=== PATIENT | male | born 2000 | race African-American/Black ===

== ENCOUNTER 2019-01-26 17:34 | Emergency (ER) | payer OTHER ==
--- OUTSIDE RECORDS SUMMARY | 2019-01-26 17:38 | XMS REPORT | Continuity of Care Document ---
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 SEIZURE Active 07/25/19 [facility] 18 Epilepsy, 06/29/19 09/27/2017 [facility] unspecified, not 18 intractable, without status epilepticus Unspecified 06/21/19 09/27/2017 [facility] convulsions 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, not intractable, without status epilepticus AMS Active 06/10/19 [facility] 18 HAND IN JURY Active 06/30/19 [facility] 12 Laceration 10/30/2017 [facility] without foreign body of right forearm, initial encounter Intentional 10/30/2017 [facility] self-harm by unspecified sharp object, initial encounter Rhabdomyolysis 09/19/2017 [facility] XRAY Active [facility] UNSPECIFIED Active [facility] CONVULSIONS Medications Medication Details Route Status Patient Ordering Order Source Instructions Provider Date Ativan 1 mg, 0.5 Inactive mL, Route: 018 [facility] IVP, Drug form: INJ, ONCE, Dosing Weight 76.364, kg, Priority: STAT, Start date: 07/24/17 13:35:00 CDT, Stop date: 07/24/17 13:35:00 CDTNotes: (Same as: Ativan) Geodon 10 mg, Inactive Route: IM, 018 [facility] Drug form: PDR/INJ, ONCE, Dosing Weight 76.364, kg, Priority: STAT, Start date: 07/24/17 10:25:00 CDT, Stop date: 07/24/17 10:25:00 CDT Zyprexa 10 mg, Inactive Route: IM, 018 [facility] Drug form: INJ, ONCE, Dosing Weight 76.364, kg, Priority: STAT, Start date: 07/24/17 9:09:00 CDT, Stop date: 07/24/17 9:09:00 CDT Morphine 2 mg, Route: Inactive IVP, ONCE, [facility] Dosing Weight 76.364, kg, Priority: STAT, Start date: 07/24/17 7:22:00 CDT, Stop date: 07/24/17 7:22:00 CDT Sodium Chloride 1,000 mL, Inactive 0.9% (Bolus) IV 1,000 ml/hr, [facility] Infuse Over: 1 hr, Route: IV, 1,000, Drug form: INJ, ONCE, Priority: STAT, Dosing Weight 79.545 kg, Start date: 07/24/17 5:49:00 CDT, Stop date: 07/24/17 5:49:00 CDT Saline Flush 10 mL, Inactive 0.9% Route: IVP, [address] [place] [address] Drug Form: INJ, Dosing Weight 79.545, kg, PRN, PRN Line Flush, Start date: 07/24/17 5:49:00 CDT, Duration: 30 day, Stop date: 08/23/17 5:48:00 CDTNotes: (Same as: BD Posiflush) Levetiracetam 1,000 mg=1 Active 1000 MG Oral tab, PO, 018 [facility] Tablet [Keppra] BID, # 60 tab, 0 Refill(s) Levetiracetam 750 mg=1 No Longer MH 750 MG Oral tab, PO, Active 018 [facility] Tablet [Keppra] Q12H, # 60 tab, 0 Refill(s), Pharmacy: [facility] [id number] Levetiracetam 750 mg, 3 Inactive tab, Route: 018 [facility] PO, Drug form: TAB, Q12H, Dosing Weight 77.273, kg, Start date: 06/12/17 21:00:00 RISK MODELER, Duration: 30 day, Stop date: 07/12/17 9:00:00 CSTNotes: (Same as:Keppra) Levetiracetam 750 mg, 3 No Longer MH 750 MG Oral tab, Route: Active 018 [facility] Tablet [Keppra] PO, Drug form: TAB, Q12H, Dosing Weight 75, kg, Start date: 06/12/17 21:00:00 RISK MODELER, Duration: 30 day, Stop date: 07/12/17 9:00:00 CSTNotes: (Same as:Keppra) Levetiracetam 500 mg, 1 No Longer MH tab, Route: Active 018 [facility] PO, Drug form: TAB, Q12H, Dosing Weight 77.273, kg, Start date: 06/11/17 9:00:00 RISK MODELER, Duration: 30 day, Stop date: 07/10/17 21:00:00 CSTNotes: (Same as:Keppra) Tylenol 650 mg, 2 No Longer MH tab, Route: Active 018 [facility] PO, Drug form: TAB, Q6H, Dosing Weight 75, kg, PRN Pain Score 6-10, Start date: 06/11/17 8:09:00 RISK MODELER, Duration: 30 day, Stop date: 07/11/17 8:08:00 CSTNotes: Do not exceed 4 gm/day. (Same as: Tylenol) Saline Flush 10 ml, No Longer MH 0.9% Route: IVP, Active 018 [facility] Drug Form: INJ, Dosing Weight 77.273, kg, PRN, PRN Line Flush, Start date: 06/10/17 23:00:00 RISK MODELER, Duration: 30 day, Stop date: 07/10/17 22:59:00 CSTNotes: (Same as: BD Posiflush) Sodium Chloride 1,000 mL, No Longer MH 0.9% IV 1,000 Rate: 125 Active 018 [facility] mL ml/hr, Infuse over: 8 hr, Route: IV, Dosing Weight 77.273 kg, Total Volume: 1,000, Start date: 06/10/17 23:00:00 RISK MODELER, Duration: 30 day, Stop date: 07/10/17 22:59:00 RISK MODELER, 2.02, m2 Lorazepam 1 mg, 0.5 No Longer mL, Route: Active [address] [place] [address] IVP, Drug form: INJ, Q15Min, Dosing Weight 77.273, kg, PRN Seizure, Start date: 06/10/17 23:00:00 RISK MODELER, Duration: 30 day, Stop date: 07/10/17 22:59:00 CSTNotes: (Same as: Ativan) Acetaminophen 1 tab, Inactive MH 300 MG / Route: PO, [address] [place] [address] Codeine Drug Form: Phosphate 30 MG TAB, Dosing Oral Tablet Weight [Tylenol with 77.273, kg, Codeine #3] ONCE, STAT, Start date: 06/10/17 22:10:00 RISK MODELER, Stop date: 06/10/17 22:10:00 CSTNotes: Do not exceed 4gm/day of acetaminophe n. (Same as: Tylenol with Codeine # 3) Keppra 1,000 mg, Inactive Route: IV, [address] [place] [address] ONCE, Dosing Weight 77.273, kg, Start date: 06/10/17 20:15:00 RISK MODELER, Stop date: 06/10/17 20:15:00 CSTNotes: Same as Keppra Mix with 100 mL NS, LR or D5W MEDICATION WASTE Product Size: 500 mg Product Wasted: ___ mg Sodium Chloride 1,000 mL, Inactive 0.9% (Bolus) IV Infuse Over: [address] [place] [address] 1 hr, Route: IV, ONCE, Priority: STAT, Dosing Weight 50.909 kg, Start date: 06/10/17 19:37:00 RISK MODELER, Stop date: 06/10/17 19:37:00 RISK MODELER Lorazepam 2 mg, Route: Inactive IVP, ONCE, [address] [place] [address] Dosing Weight 50.909, kg, Priority: STAT, Start date: 06/10/17 19:37:00 RISK MODELER, Stop date: 06/10/17 19:37:00 RISK MODELER Saline Flush 10 mL, No Longer 0.9% Route: IVP, Active [address] [place] [address] Drug Form: INJ, Dosing Weight 50.909, kg, PRN, PRN Line Flush, Start date: 06/10/17 19:37:00 RISK MODELER, Duration: 30 day, Stop date: 07/10/17 19:36:00 CSTNotes: (Same as: BD Posiflush) ibuprofen 400 mg, PO No Longer Russo Route: PO, Active 012 [facility] Drug form: TAB, ONCE, Priority: STAT, Start date: 06/30/11 14:47:00, Stop date: 06/30/11 14:47:00 Allergies, Adverse Reactions, Alerts No Known Medication Allergies Immunizations No Data Provided for This Section Results Order Name Results Value Reference Date Interpretation Comments Source Range Gram Stain Rare WBC's 01/06 Report Few Gram Positive Rods [facility] Few Gram Negative Rods Few Gram Positive Cocci Culture: Normal 01/06 Wound/Absces Respirator /2017 [facility] s w/Gram y Radha Stain Isolated CHEM PANEL eGFR 146 07/24 Result Comment: The [facility] eGFR is calculated using the CKD-EPI formula. In most young, healthy individuals the eGFR will be >90 mL/min/1.73m2 . The eGFR declines with age. An eGFR of 60-89 may be normal in some populations, particularly the elderly, for whom the CKD-EPI formula has not been extensively validated. Use of the eGFR is not recommended in the following populations:< br/>
Rosita viduals with unstable creatinine concentration s, including patients and those with serious co-morbid conditions.<b r/>
Patie nts with extremes in muscle mass or diet.

The data above are obtained from the National Kidney Disease Education Program (NKDEP) which additionally recommends that when the eGFR is used in patients with extremes of body mass index for purposes of drug dosing, the eGFR should be multiplied by the estimated BMI. CHEM PANEL Albumin Lvl 4.1 3.5 - 5.0 07/24 [facility] CHEM PANEL Total 8.4 6.4 - 8.4 07/24 [facility] CHEM PANEL CO2 30 24 - 32 07/24 [facility] CHEM PANEL Chloride Lvl 105 95 - 109 07/24 [facility] CHEM PANEL Calcium Lvl 8.8 8.5 - 10.5 07/24 [facility] CHEM PANEL Potassium 3.8 3.5 - 5.1 07/24 Lvl [facility] CHEM PANEL Glucose Lvl 82 70 - 99 07/24 [facility] CHEM PANEL Sodium Lvl 144 135 - 145 07/24 [facility] CHEM PANEL BUN 14 7 - 22 07/24 [facility] CHEM PANEL Creatinine 0.86 0.50 - 07/24 MH Lvl 1.40 /2017 [facility] CHEM PANEL AST 14 0 - 37 07/24 [facility] CHEM PANEL Alk Phos 85 39 - 136 07/24 [facility] CHEM PANEL ALT 13 0 - 65 07/24 [facility] CHEM PANEL Bili Total 0.7 0.2 - 1.3 07/24 [facility] CHEM PANEL Globulin 4.3 2.7 - 4.2 07/24 [facility] CHEM PANEL B/C Ratio 16 6 - 25 07/24 [facility] CHEM PANEL A/G Ratio 1.0 0.7 - 1.6 07/24 [facility] CHEM PANEL AGAP 12.8 10.0 - 07/24 MH 20.0 [facility] DRUG UDS Note See Note 07/24 MH SCREEN (07/24/17 6:02 AM) /2017 [facility] DRUG U Phencyc Negative Negative 07/24 MH SCREEN Scr *NA* /2017 [facility] (07/24/17 6:02 AM) DRUG U Cannab Scr Positive Negative 07/24 MH SCREEN *ABN* /2017 [facility] (07/24/17 6:02 AM) DRUG U Cocaine Negative Negative 07/24 MH SCREEN Scr *NA* /2017 [facility] (07/24/17 6:02 AM) DRUG U Opiate Scr Negative Negative 07/24 MH SCREEN *NA* (07/24/17 6:02 AM) DRUG U Amph Scr Negative Negative 07/24 MH SCREEN *NA* /2017 (07/24/17 6:02 AM) DRUG U Benzodia Negative Negative 07/24 MH SCREEN Scr *NA* [facility] (07/24/17 6:02 AM) DRUG U Nkechi Scr Negative Negative 07/24 MH SCREEN *NA* [facility] (07/24/17 6:02 AM) HEMATOLOGY PTT 28.1 22.9 - 07/24 MH 35.8 /2017 [facility] HEMATOLOGY PT 16.7 12.0 - 07/24 MH 14.7 /2017 [facility] HEMATOLOGY INR 1.34 0.85 - 07/24 MH 1.17 [facility] HEMATOLOGY WBC 5.7 3.7 - 10.4 07/24 [facility] HEMATOLOGY RDW 12.3 11.5 - 07/24 MH 14.5 /2017 [facility] HEMATOLOGY MPV 8.4 7.4 - 10.4 07/24 [facility] HEMATOLOGY Platelet 237 133 - 450 07/24 [facility] HEMATOLOGY MCHC 33.7 32.0 - 07/24 MH 36.0 /2017 [facility] HEMATOLOGY RBC 4.60 4.70 - 07/24 MH 6.10 /2017 [facility] HEMATOLOGY MCV 92.7 80.0 - 07/24 MH 94.0 /2017 [facility] HEMATOLOGY Hgb 14.4 14.0 - 07/24 MH 18.0 /2017 [facility] HEMATOLOGY MCH 31.2 27.0 - 07/24 MH 31.0 /2017 [facility] HEMATOLOGY Hct 42.6 42.0 - 07/24 54.0 /2017 [facility] HEMATOLOGY Eosinophils 0.1 0.0 - 0.5 07/24 MH # /2017 [facility] HEMATOLOGY Monocytes # 0.5 0.0 - 0.8 07/24 [facility] HEMATOLOGY Lymphocytes 2.0 1.0 - 5.5 07/24 # /2017 [facility] HEMATOLOGY Segs-Bands # 3.0 1.5 - 8.1 07/24 [facility] HEMATOLOGY Basophils 0.5 0.0 - 1.0 07/24 [facility] HEMATOLOGY Eosinophils 1.0 0.0 - 4.0 07/24 [facility] HEMATOLOGY Lymphocytes 35.8 20.0 - 07/24 MH 40.0 /2017 [facility] HEMATOLOGY Monocytes 9.0 2.0 - 12.0 07/24 [facility] HEMATOLOGY Segs 53.7 45.0 - 07/24 MH 75.0 [facility] TOXICOLOGY Ethanol Lvl <3 07/24 [facility] TOXICOLOGY Etoh (%) <0.003 07/24 [facility] TOXICOLOGY Salicylate <1.7 0.0 - 30.0 07/24 Lvl /2017 [facility] TOXICOLOGY Acetaminoph <2 10 - 20 07/24 Lvl (07/24/17 6:02 AM) [facility] URINE AND UA Sq Epi None Seen 07/24 STOOL /2017 [facility] URINE AND UA Turbidity Clear Clear 07/24 STOOL (07/24/17 6:02 AM) /2017 [facility] URINE AND UA Glucose Negative Negative 07/24 STOOL mg/dL mg/dL /2017 [facility] URINE AND UA Spec Grav 1.033 <=1.030 07/24 STOOL [facility] URINE AND UA Protein 30 mg/dL Negative 07/24 STOOL mg/dL /2017 [facility] URINE AND UA pH 6.0 5.0 - 8.0 07/24 STOOL [facility] URINE AND UA Leuk Est Negative Negative 07/24 STOOL (07/24/17 6:02 AM) [facility] URINE AND UA Mucus Many /LPF None Seen 07/24 STOOL /LPF /2017 [facility] URINE AND UA WBC 8 0 - 5 07/24 STOOL /2017 [facility] URINE AND UA Bacteria Occasional None Seen 07/24 STOOL /HPF /HPF /2017 [facility] URINE AND UA RBC 1 0 - 2 07/24 STOOL [facility] URINE AND UA Bili Negative Negative 07/24 STOOL *NA* /2017 [facility] (07/24/17 6:02 AM) URINE AND UA Ketones Negative Negative 07/24 STOOL mg/dL mg/dL [facility] URINE AND UA Blood Negative Negative 07/24 STOOL (07/24/17 6:02 AM) [facility] URINE AND UA Nitrite Negative Negative 07/24 STOOL (07/24/17 6:02 AM) [facility] URINE AND UA 2.0 0.1 - 1.0 07/24 STOOL Urobilinogen [facility] URINE AND UA Color Yellow Yellow 07/24 STOOL *NA* /2017 [facility] (07/24/17 6:02 AM) Culture: No Growth 07/24 Urine [facility] CARDIAC Total CK 181 12 - 191 06/21 ENZYMES /2017 [facility] ELECTROLYT AGAP 16.6 10.0 - 06/21 ES 20.0 [facility] ELECTROLYT eGFR 153 06/21 Result ES /2017 Comment: The [facility] eGFR is calculated using the CKD-EPI formula. In most young, healthy individuals the eGFR will be >90 mL/min/1.73m2 . The eGFR declines with age. An eGFR of 60-89 may be normal in some populations, particularly the elderly, for whom the CKD-EPI formula has not been extensively validated. Use of the eGFR is not recommended in the following populations:< br/>
Rosita viduals with unstable creatinine concentration s, including patients and those with serious co-morbid conditions.<b r/>
Patie nts with extremes in muscle mass or diet.

The data above are obtained from the National Kidney Disease Education Program (NKDEP) which additionally recommends that when the eGFR is used in patients with extremes of body mass index for purposes of drug dosing, the eGFR should be multiplied by the estimated BMI. ELECTROLYT BUN 11 7 - 22 06/21 ES [facility] ELECTROLYT Glucose Lvl 86 70 - 99 06/21 ES [facility] ELECTROLYT Sodium Lvl 138 135 - 145 06/21 ES [facility] ELECTROLYT Creatinine 0.77 0.50 - 06/21 ES Lvl 1.40 /2017 [facility] ELECTROLYT Calcium Lvl 9.6 8.5 - 10.5 06/21 ES [facility] ELECTROLYT CO2 23 24 - 32 06/21 ES [facility] ELECTROLYT Chloride Lvl 102 95 - 109 06/21 ES [facility] ELECTROLYT Potassium 3.6 3.5 - 5.1 06/21 ES Lvl /2017 [facility] HEMATOLOGY MPV 9.2 7.4 - 10.4 06/21 [facility] HEMATOLOGY MCHC 33.7 32.0 - 06/21 36.0 [facility] HEMATOLOGY Platelet 242 133 - 450 06/21 [facility] HEMATOLOGY RDW 12.1 11.5 - 06/21 14.5 /2017 [facility] HEMATOLOGY MCH 30.9 27.0 - 06/21 31.0 [facility] HEMATOLOGY WBC 3.9 3.7 - 10.4 06/21 [facility] HEMATOLOGY RBC 4.77 4.70 - 06/21 6.10 /2017 [facility] HEMATOLOGY Hgb 14.7 14.0 - 06/21 18.0 [facility] HEMATOLOGY MCV 91.4 80.0 - 06/21 94.0 [facility] HEMATOLOGY Hct 43.6 42.0 - 06/21 MH 54.0 2018 [facility] HEMATOLOGY Monocytes 12.0 2.0 - 12.0 06/21 [facility] HEMATOLOGY Basophils 0.6 0.0 - 1.0 06/21 [facility] HEMATOLOGY Lymphocytes 1.1 1.0 - 5.5 06/21 MH # /2018 [facility] HEMATOLOGY Segs-Bands # 2.2 1.5 - 8.1 06/21 [facility] HEMATOLOGY Monocytes # 0.5 0.0 - 0.8 06/21 [facility] HEMATOLOGY Lymphocytes 28.6 20.0 - 06/21 MH 40.0 /2018 [facility] HEMATOLOGY Segs 57.6 45.0 - 06/21 MH 75.0 /2018 [facility] HEMATOLOGY Eosinophils 1.2 0.0 - 4.0 06/21 [facility] CHEM PANEL Lactic Acid 1.1 0.5 - 2.2 06/11 Lvl /2017 [facility] CHEM PANEL eGFR 158 06/11 Result Comment: The [facility] eGFR is calculated using the CKD-EPI formula. In most young, healthy individuals the eGFR will be >90 mL/min/1.73m2 . The eGFR declines with age. An eGFR of 60-89 may be normal in some populations, particularly the elderly, for whom the CKD-EPI formula has not been extensively validated. Use of the eGFR is not recommended in the following populations:< br/>
Rosita viduals with unstable creatinine concentration s, including patients and those with serious co-morbid conditions.<b r/>
Patie nts with extremes in muscle mass or diet.

The data above are obtained from the National Kidney Disease Education Program (NKDEP) which additionally recommends that when the eGFR is used in patients with extremes of body mass index for purposes of drug dosing, the eGFR should be multiplied by the estimated BMI. CHEM PANEL AST 29 0 - 37 06/11 [facility] CHEM PANEL ALT 19 0 - 65 06/11 [facility] CHEM PANEL Chloride Lvl 107 95 - 109 06/11 [facility] CHEM PANEL CO2 27 24 - 32 06/11 [facility] CHEM PANEL B/C Ratio 15 6 - 25 06/11 [facility] CHEM PANEL Calcium Lvl 8.3 8.5 - 10.5 06/11 [facility] CHEM PANEL Total 6.7 6.4 - 8.4 06/11 Protein [facility] CHEM PANEL Albumin Lvl 3.5 3.5 - 5.0 06/11 [facility] CHEM PANEL Globulin 3.2 2.7 - 4.2 06/11 [facility] CHEM PANEL Bili Total 0.4 0.2 - 1.3 06/11 [facility] CHEM PANEL Alk Phos 74 39 - 136 06/11 [facility] CHEM PANEL A/G Ratio 1.1 0.7 - 1.6 06/11 [facility] CHEM PANEL AGAP 11.6 10.0 - 02/05 MH 20.0 /2017 [facility] CHEM PANEL Sodium Lvl 142 135 - 145 02/ [facility] CHEM PANEL Creatinine 0.72 0.50 - 02/05 MH Lvl 1.40 /2017 [facility] CHEM PANEL Potassium 3.6 3.5 - 5.1 02/05 Lvl /2017 [facility] CHEM PANEL Glucose Lvl 91 70 - 99 02/ [facility] CHEM PANEL BUN 11 7 - 22 02/ [facility] HEMATOLOGY WBC 5.5 3.7 - 10.4 02/ [facility] HEMATOLOGY RBC 4.17 4.70 - 02/05 MH 6.10 /2017 [facility] HEMATOLOGY Platelet 208 133 - 450 02 [facility] HEMATOLOGY RDW 12.2 11.5 - 02/ MH 14.5 /2017 [facility] HEMATOLOGY MPV 8.6 7.4 - 10.4 06/11 [facility] HEMATOLOGY MCV 91.2 80.0 - 02/ MH 94.0 /2017 [facility] HEMATOLOGY Hct 38.0 42.0 - 02/ MH 54.0 /2017 [facility] HEMATOLOGY Hgb 12.7 14.0 - 02 MH 18.0 /2017 [facility] HEMATOLOGY MCH 30.6 27.0 - 02/05 MH 31.0 /2017 [facility] HEMATOLOGY MCHC 33.6 32.0 - 02/05 36.0 /2017 [facility] HEMATOLOGY Segs-Bands # 2.9 1.5 - 8.1 02 [facility] HEMATOLOGY Lymphocytes 1.9 1.0 - 5.5 02/05 MH # /2018 [facility] HEMATOLOGY Basophils 0.5 0.0 - 1.0 02/05 [facility] HEMATOLOGY Monocytes # 0.5 0.0 - 0.8 02/ [facility] HEMATOLOGY Eosinophils 0.1 0.0 - 0.5 02/05 MH # /2018 [facility] HEMATOLOGY Segs 53.4 45.0 - 02/05 MH 75.0 /2017 [facility] HEMATOLOGY Eosinophils 1.7 0.0 - 4.0 02/05 [facility] HEMATOLOGY Lymphocytes 35.6 20.0 - 02/05 MH 40.0 /2017 [facility] HEMATOLOGY Monocytes 8.8 2.0 - 12.0 02/ [facility] DRUG UDS Note See Note 06/11 SCREEN (06/10/17 9:32 PM) /2017 [facility] DRUG U Propoxyph Negative Negative 02/05 MH SCREEN Scr *NA* [facility] (06/10/17 9:32 PM) DRUG U Cocaine Negative Negative 02/05 MH SCREEN Scr (06/10/17 9:32 PM) DRUG U Phencyc Negative Negative 02/05 MH SCREEN Scr *NA* (06/10/17 9:32 PM) DRUG U Methadone Negative Negative 02/05 [facility] SCREEN Scr *NA* [facility] (06/10/17 9:32 PM) DRUG U Cannab Scr Negative Negative 02/05 MH SCREEN *NA* [facility] (06/10/17 9:32 PM) DRUG U Opiate Scr Negative Negative 02/05 MH SCREEN *NA* (06/10/17 9:32 PM) DRUG U Benzodia Negative Negative 02/05 MH SCREEN Scr *NA* (06/10/17 9:32 PM) DRUG U Nkechi Scr Negative Negative 02/05 MH SCREEN * (06/10/17 9:32 PM) DRUG U Amph Scr Negative Negative 02/05 MH SCREEN *NA* (06/10/17 9:32 PM) DRUG UDS Note See Note 02/05 MH SCREEN *NA* (06/10/17 9:32 PM) DRUG U Opiate Scr Negative Negative 02/05 MH SCREEN (06/10/17 9:32 PM) DRUG U Phencyc Negative Negative 02/05 MH SCREEN Scr (06/10/17 9:32 PM) DRUG U Cocaine Negative Negative 02/05 MH SCREEN Scr (06/10/17 9:32 PM) DRUG U Cannab Scr Negative Negative 02/05 [facility] SCREEN [facility] (06/10/17 9:32 PM) DRUG U Nkechi Scr Negative Negative 02/05 MH SCREEN *NA* (06/10/17 9:32 PM) DRUG U Amph Scr Negative Negative 02/05 MH SCREEN *NA* (06/10/17 9:32 PM) DRUG U Benzodia Negative Negative 02/05 MH SCREEN Scr [facility] (06/10/17 9:32 PM) URINE AND UA pH 8.0 5.0 - 8.0 06/11 STOOL [facility] URINE AND UA Spec Grav 1.014 <=1.030 06/11 STOOL [facility] URINE AND UA Leuk Est Negative Negative 06/11 STOOL (06/10/17 9:32 PM) [facility] URINE AND UA Nitrite Negative Negative 06/11 STOOL (06/10/17 9:32 PM) [facility] URINE AND UA Sq Epi Occasional Few /LPF 06/11 STOOL /LPF /2017 [facility] URINE AND UA Blood Negative Negative 06/11 STOOL (06/10/17 9:32 PM) [facility] URINE AND UA Bili Negative Negative 06/11 STOOL *NA* /2017 [facility] (06/10/17 9:32 PM) URINE AND UA Sperm Occasional None Seen 06/11 STOOL /HPF /HPF [facility] URINE AND UA Protein Negative Negative 06/11 STOOL mg/dL mg/dL [facility] URINE AND UA Ketones Negative Negative 06/11 STOOL mg/dL mg/dL [facility] URINE AND UA Glucose Negative Negative 06/11 STOOL mg/dL mg/dL [facility] URINE AND UA <=1.0 0.1 - 1.0 06/11 STOOL Urobilinogen mg/dL [facility] URINE AND UA Bacteria Occasional None Seen 06/11 STOOL /HPF /HPF [facility] URINE AND UA Color Ltyellow 06/11 STOOL [facility] URINE AND UA Turbidity Clear Clear 06/11 STOOL (06/10/17 9:32 PM) [facility] CARDIAC CK MB Index 0.1 0.0 - 2.5 06/11 ENZYMES [facility] CARDIAC Total CK 2697 12 - 191 06/11 ENZYMES [facility] CARDIAC CK MB 2.2 0.5 - 3.6 06/11 ENZYMES [facility] CHEM PANEL eGFR 125 06/11 Result Comment: The [facility] eGFR is calculated using the CKD-EPI formula. In most young, healthy individuals the eGFR will be >90 mL/min/1.73m2 . The eGFR declines with age. An eGFR of 60-89 may be normal in some populations, particularly the elderly, for whom the CKD-EPI formula has not been extensively validated. Use of the eGFR is not recommended in the following populations:< br/>
Rosita viduals with unstable creatinine concentration s, including patients and those with serious co-morbid conditions.<b r/>
Patie nts with extremes in muscle mass or diet.

The data above are obtained from the National Kidney Disease Education Program (NKDEP) which additionally recommends that when the eGFR is used in patients with extremes of body mass index for purposes of drug dosing, the eGFR should be multiplied by the estimated BMI. CHEM PANEL Bili Total 0.4 0.2 - 1.3 06/11 [facility] CHEM PANEL Glucose Lvl 80 70 - 99 06/11 [facility] CHEM PANEL Albumin Lvl 4.3 3.5 - 5.0 06/11 [facility] CHEM PANEL ALT 26 0 - 65 06/11 [facility] CHEM PANEL Calcium Lvl 8.7 8.5 - 10.5 06/11 [facility] CHEM PANEL Total 8.4 6.4 - 8.4 06/11 Protein [facility] CHEM PANEL CO2 26 24 - 32 06/11 [facility] CHEM PANEL Potassium 3.8 3.5 - 5.1 02/ Lvl /2017 [facility] CHEM PANEL Chloride Lvl 104 95 - 109 06/11 [facility] CHEM PANEL Creatinine 1.01 0.50 - 02 Lvl 1.40 /2018 [facility] CHEM PANEL Sodium Lvl 140 135 - 145 06/11 [facility] CHEM PANEL BUN 14 7 - 22 06/11 [facility] CHEM PANEL AST 40 0 - 37 06/11 [facility] CHEM PANEL Alk Phos 89 39 - 136 06/11 [facility] CHEM PANEL Globulin 4.1 2.7 - 4.2 02 [facility] CHEM PANEL AGAP 13.8 10.0 - 02/ MH 20.0 /2018 [facility] CHEM PANEL B/C Ratio 14 6 - 25 / [facility] CHEM PANEL A/G Ratio 1.0 0.7 - 1.6 / MH [facility] HEMATOLOGY Eosinophils 0.1 0.0 - 0.5 02/05 MH # /2018 [facility] HEMATOLOGY Monocytes # 0.6 0.0 - 0.8 / [facility] HEMATOLOGY Eosinophils 2.1 0.0 - 4.0 02/ /2017 [facility] HEMATOLOGY Lymphocytes 33.6 20.0 - 02/05 MH 40.0 /2018 [facility] Segs 55.1 45.0 - 06/11 MH 75.0 /2017 [facility] Monocytes 8.6 2.0 - 12.0 06/11 /2017 [facility] HEMATOLOGY Basophils 0.6 0.0 - 1.0 06/11 [facility] Lymphocytes 2.3 1.0 - 5.5 06/11 # /2018 [facility] Segs-Bands # 3.8 1.5 - 8.1 06/11 [facility] PT 15.0 12.0 - 06/11 14.7 /2017 [facility] INR 1.17 0.85 - 06/11 1.17 /2017 [facility] PTT 29.7 22.9 - 06/11 35.8 /2017 [facility] [facility] WBC 6.9 3.7 - 10.4 06/11 [facility] RBC 4.65 4.70 - 06/11 6.10 /2017 [facility] Hgb 14.4 14.0 - 06/11 18.0 /2017 [facility] Hct 42.6 42.0 - 06/11 54.0 /2017 [facility] MCV 91.6 80.0 - 06/11 94.0 /2017 [facility] MCHC 33.8 32.0 - 06/11 36.0 /2017 [facility] MCH 30.9 27.0 - 06/11 31.0 /2017 [facility] MPV 8.4 7.4 - 10.4 06/11 [facility] RDW 12.9 11.5 - 06/11 14.5 /2017 [facility] Platelet 237 133 - 450 06/11 [facility] TOXICOLOGY Ethanol Lvl <3 06/11 [facility] TOXICOLOGY Etoh (%) <0.003 06/11 [facility] Pathology Reports No Data Provided for This Section Diagnostic Reports Report Value Date Source Brain wo contrast CT Clinical Indication: Altered mental status. Vomiting. Seizure. Post ictal this morning. 07/24/2017 [facility] Comparison: CT head 06/10/2017. TECHNIQUE: CT images were obtained from the foramen magnum to the vertex without the use of intravenous contrast on a multidetector CT. Coronal and sagittal reconstructions were obtained. CT radiation dose DLP: 981.84 mGy-cm FINDINGS: BRAIN PARENCHYMA: The thibodeaux-white differentiation is preserved without CT evidence of acute territorial infarction. There is no mass effect, midline shift or edema. There are no intra-axial or extra-axia l fluid collections, intraventricular or intraparenchymal hemorrhage. VENTRICLES: The ventricles are appropriate for the patient's stated age. There is no evidence of hydrocephalus. The basilar cisterns are within normal limits. ORBITS, MASTOIDS AND PARANASAL SINUSES: There is a mucous retention cyst versus polyp in the left inferior frontal recess. The visualized orbits are unremarkable. The mastoid air cells are clear. SKULL: There are no osseous abnormalities. If there is further concern for intracranial pathology or acute stroke, MRI of the brain may be performed for complete assessment. IMPRESSION: No acute intracranial hemorrhage or mass effect. No CT evidence of acute territorial infarction. SL: NEGRITO Brain w/wo contrast Brain w/wo contrast MRI 06/11/2017 [facility] MRI History: - new onset sz x 5 Comparison: MRI brain 07/07/2010, CT head 07/08/2017 Technique: Multiplanar and multisequence imaging of the brain was obtained with and without contrast. Findings: No restricted diffusion. No evidence of mass, mass effect, extra axial fluid collection, hydrocephalus or midline shift. No overt evidence of mesial temporal sclerosis. No congenital malformation is identified. No evidence to s uggest thibodeaux-white matter heterotopia. No abnormal focal white matter changes are noted. No abnormal intracranial enhancement. The paranasal sinuses and mastoid air cells are clear. Impression: Unremarkable contrast-enhanced magnetic resonance imaging of the brain. SL: BRIANA Chest 1view DX Exam: Chest 1view DX 06/10/2017 [facility] Clinical Indication: - AMS Comparison: None FINDINGS: Single frontal radiograph of the chest is performed. Lungs appear clear without infiltrate or mass. No pleural effusion or pneumothorax. Cardiomediastinal silhouette is within normal limits. Pulmonary vascularity is within normal limits. No acute osseous abnormality identified. IMPRESSION: No acute cardiopulmonary abnormality. SL: JCHILD-PC Spine cervical wo Clinical Indication: - s/p fall. 06/10/[address] [facility] [address] Comparison: None Technique: Multi-detector CT imaging of the cervical spine is performed. Coronal and sagittal reconstructions were obtained. CT imaging was performed with exposure control parameters to reduce radiation dose. CT Radiation Dose DLP 334 mGy-cm FINDINGS: ALIGNMENT AND GENERAL ASSESSMENT: There is normal alignment of the cervical spine. There are no fractures or subluxations. The craniocervical junction is normal. The atlanto-dental alignment appears un remarkable. The facet joint, spinolaminar and spinous process alignment are normal. DISK SPACES AND SOFT TISSUES: The prevertebral soft tissues are normal. The intervertebral disc spaces are within normal limits. There is no critical spinal canal stenosis. VISUALIZED LUNG APICES: Unremarkable. MRI of the cervical spine may be performed, if there is further concern. IMPRESSION: No fractures or subluxations of the cervical spine. MARISSA: JAYNE Brain wo contrast CT Clinical Indication: - AMS. 06/10/2017 [facility] Comparison: None. TECHNIQUE: CT images were obtained from the foramen magnum to the vertex without the use of intravenous contrast on a multidetector CT. CT imaging was performed with exposure control parameters to reduc e radiation dose. Coronal and sagittal reconstructions were obtained. CT radiation dose DLP: 660 mGy-cm FINDINGS: BRAIN PARENCHYMA: The brain parenchyma is normal with normal cabrera and white interfaces. The periventricular white matter appears unremarkable. No focal mass lesions on this noncontrast head CT. No mass effect, midline shift or edema. There are no intra-axial or extra-axial fluid collections, intraventricular or intraparenchymal hemorrhage. No low attenuation demarcating areas on this non-contrast CT to suggest subacute stroke. VENTRICLES: The lateral ventricles, third and fourth ventricles appear unremarkable. The basilar cisterns are normal. ORBITS, MASTOIDS AND PARANASAL SINUSES: The visualized orbits are unremarkable. The visualized paranasal sinuses are unremarkable. The mastoid air cells are clear. SKULL: There are no osseous abnormalities. If there is further concern for intracranial pathology or acute stroke, MRI of the brain may be performed for complete assessment. IMPRESSION: No acute infarct, intracranial hemorrhage or mass effect. SL: JAYNE Consultation Notes No Data Provided for This Section Discharge Summaries No Data Provided for This Section History and Physicals No Data Provided for This Section Vital Signs Vital Sign Value Date Comments Source Temperature Oral (F) 98.0 F 07/25/2017 [facility] Respitory Rate 16 07/25/2017 [facility] Systolic (mm Hg) 118 07/25/2017 [facility] Diastolic (mm Hg) 88 07/25/2017 [facility] Temperature Oral (F) 98.1 F 07/25/2017 [facility] Respitory Rate 14 07/25/2017 [facility] Systolic (mm Hg) 121 07/25/2017 [facility] Diastolic (mm Hg) 90 07/25/2017 [facility] Respitory Rate 12 07/24/2017 [facility] Systolic (mm Hg) 129 07/24/2017 [facility] Diastolic (mm Hg) 77 07/24/2017 [facility] Height 190.5 cm 07/24/2017 [facility] Weight 76.364 07/24/2017 [facility] BMI Calculated 21.04 07/24/2017 [facility] Heart Rate 81 07/24/2017 [facility] Temperature Oral (F) 98 F 06/21/2017 [facility] Systolic (mm Hg) 143 06/21/2017 [facility] Diastolic (mm Hg) 97 06/21/2017 [facility] Respitory Rate 18 06/21/2017 [facility] BMI Calculated 25.16 06/21/2017 [facility] Weight 79.545 06/21/2017 [facility] Systolic (mm Hg) 134 06/21/2017 [facility] Diastolic (mm Hg) 93 06/21/2017 [facility] Temperature Oral (F) 98.8 F 06/21/2017 [facility] Respitory Rate 18 06/21/2017 [facility] Heart Rate 71 06/21/2017 [facility] Height 177.8 cm 06/21/2017 [facility] Temperature Oral (F) 97.9 F 06/13/2017 [facility] Respitory Rate 18 06/13/2017 [facility] Heart Rate 90 06/13/2017 [facility] Systolic (mm Hg) 125 06/13/2017 [facility] Diastolic (mm Hg) 72 06/13/2017 [facility] Systolic (mm Hg) 136 06/13/2017 [facility] Diastolic (mm Hg) 81 06/13/2017 [facility] Respitory Rate 18 06/13/2017 [facility] Heart Rate 56 06/13/2017 [facility] Temperature Oral (F) 97.9 F 06/13/2017 [facility] Systolic (mm Hg) 131 06/13/2017 [facility] Diastolic (mm Hg) 80 06/13/2017 [facility] Temperature Oral (F) 97.9 F 06/13/2017 [facility] Heart Rate 62 06/13/2017 [facility] Respitory Rate 18 06/13/2017 [facility] Height 190.5 cm 06/11/2017 [facility] Weight 75 06/11/2017 [facility] BMI Calculated 20.67 06/11/2017 [facility] Height 190.5 cm 06/11/2017 [facility] Weight 77.273 06/11/2017 [facility] BMI Calculated 21.29 06/11/2017 [facility] Weight 50.909 06/30/2011 [facility] Height 157.48 cm 06/30/2011 [facility] Encounters Location Location Encounter Encounter Reason Attending ADM DC Status Source Details Type Number For Provider Date Date Visit Emergency [id number] ADELA PARK 06/30 06/30 Discharg [facility] /[address] [facility] Outpatient [id number] BLAINE CODY 07/19 Active [facility] Inpatient [id number] Nelson 06/11 06/13 [facility] Stefany /2017 [facility] Emergency [id number] Evelyne 06/21 06/21 [facility] Jovanni /2017 [facility] Emergency [id number] Robby Badillo 07/24 07/25 [facility]2017 [facility] Outpatient [id number] SARAH 07/25 Active [facility] Outpatient [id number] Joseph 01/06 01/07 [facility] /2017 [facility] Procedures No Data Provided for This Section Assessment and Plan Assessment and Plan Date Source Extracted from:Title: Clinical Document 06/13/2017 [facility] Author: Nelson Mccall MD Date: 06/13/17 Hospitalist Progress Note [facility] Nelson Mccall MD SUBJECTIVE: Patient seen and examined, events reviewed No more seizure activity in the past 24 hours OBJECTIVE: Vitals and Temp: Vitals Tmp(F) Pulse BP RR SpO2 FIO2 06/13 12:00 97.9 90 125/72 18 100 --- 06/13 08:00 97.9 56 136/81 18 100 --- 06/13 04:00 97.9 62 131/80 18 99 --- 06/13 00:26 97.7 58 132/80 18 100 --- 06/12 20:51 97.8 71 145/95 16 100 --- 24 Hr Tmax: 97.9F (36.61c) at 06/13 12:00 Vital Signs are the last 5 in the past 48 hours. Input/Output Record In Out Bal 06/13 24hr Tot 480 0 480 06/12 24hr Tot 240 700 -460 Labs (Last four charted values) WBC 5.5 (JUN 11) 6.9 (JUN 10) Hgb L 12.7 (JUN 11) 14.4 (JUN 10) Hct L 38.0 (JUN 11) 42.6 (JUN 10) Plt 208 (JUN 11) 237 (JUN 10) Na 142 (JUN 11) 140 (JUN 10) K 3.6 (JUN 11) 3.8 (JUN 10) CO2 27 (JUN 11) 26 (JUN 10) Cl 107 (JUN 11) 104 (JUN 10) Cr 0.72 (JUN 11) 1.01 (JUN 10) BUN 11 (JUN 11) 14 (JUN 10) Glucose Random 91 (JUN 11) 80 (JUN 10) Ca L 8.3 (JUN 11) 8.7 (JUN 10) PT H 15.0 (JUN 10) INR 1.17 (JUN 10) PTT 29.7 (JUN 10) CK MB 2.2 (JUN 10) Total CK H 2697 (JUN 10) MEDICATIONS Scheduled Meds (1):levETIRAcetam (Keppra 750 mg oral tablet) Unscheduled Meds: None PRN Meds (4):LORazepam, acetaminophen (Tylenol), sodium chloride (Saline Flush 0.9%), sodium chloride (Saline Flush 0.9%) One Time Meds: None Continuous Infusions (1):Sodium Chloride 0.9% IV 1,000 mL ASSESSMENT and EXAM: GENERAL: Sitting up in bed in no distress at this time. HEENT: PERRL. NECK: No JVD. CARDIOVASCULAR: Regular rate and rhythm, S1, S2 positive. LUNGS: Clear to auscultation bilateral. GASTROINTESTINAL: Soft, nontender, nondistended, positive bowel sounds. EXTREMITIES: No clubbing, cyanosis or edema. NEUROLOGICAL: No deficits noted. SKIN: no rashes noted. DIAGNOSES and PROBLEMS: Epilepsy Multiple seizures, new onset Acute rhabdomyolysis PLAN and TREATMENT: Seizure-free for the past 24 hours Cleared by neurology for discharge HOSPITAL COURSE: Mr. Bain originally presented and was admitted on 11 June 2017 secondary to seizure activity. He had multiple seizures which continued through the next day. He was seen and evaluated by neurolog y and any EEG was negative. He was placed on Keppra which was then increased after his seizure again the next day. He is cleared by neurology now for discharge home with close follow-up as an outpatient. DISCHARGE NOTE: Condition: improved Activity: as tolerated Diet: regular Follow up: pcp 1 week Medications: see d/c davida MARTIN time: 35 min Extracted from:Title: Clinical Document Author: Guy Wang MD Date: 06/13/17 Progress Note - Daily [facility] Completed: Sunday, JUN 13, 2017, 11:07 by Guy Wang MD RM: 242 - 1P, SE C2A LISSETH BAIN 17y (: 2000) M Attending: Nelson Mccall MD Service: Internal Medicine Reason for Admission: SEIZURE Working DRG: None Documented Code status: Full Code [Ordered] Current diet: Isolation: None Documented Allergies: NKDA SUBJECTIVE No seizures since yesterday. he denies pain or side effects to the medication OBJECTIVE 24hr Labs 06/10 2132 U Amph Scr Negative U Nkechi Scr Negative U Benzodia Scr Negative U Cannab Scr Negative U Cocaine Scr Negative U Methadone Scr Negative U Opiate Scr Negative U Phencyc Scr Negative U Propoxyph Scr Negative UDS Note See Note Lamas still necessary (Yes/No): Line still necessary (Yes/No): Vitals Tmp(F) Pulse BP RR SpO2 FIO2 06/13 08:00 97.9 56 136/81 18 100 --- 06/13 04:00 97.9 62 131/80 18 99 --- 06/13 00:26 97.7 58 132/80 18 100 --- 02 20:51 97.8 71 145/95 16 100 --- 06/12 16:00 97.7 79 130/78 18 99 --- 24 Hr Tmax: 98.1F (36.72c) at 06/12 12:03 Vital Signs are the last 5 in the past 48 hours. Date Wt(kg) Wt(lb) Ht(cm) Ht(in) Method 06/11 75.00 165.00 190.50 75.00 Estimated 06/10 (initial) 77.27 170.00 Estimated 02/04 190.50 75.00 Stated I&O Record In Out Bal 06/13 24hr Tot 240 0 240 06/12 24hr Tot 240 700 -460 Medications (6) Active Scheduled Meds (1): 06/12/17 levETIRAcetam (Keppra 750 mg oral tablet) 750 mg PO Q12H Unscheduled Meds: None PRN Meds (4): 06/10/17 LORazepam 1 mg IVP Q15Min 06/11/17 acetaminophen (Tylenol) 650 mg PO Q6H 06/10/17 sodium chloride (Saline Flush 0.9%) 10 mL IVP PRN 06/10/17 sodium chloride (Saline Flush 0.9%) 10 ml IVP PRN One Time Meds: None Continuous Infusions (1): 06/10/17 Sodium Chloride 0.9% IV 1,000 mL 1,000 mL 125 ml/hr EXAM GEN - NAD HEENT - NCAT. MM Ext - no c/c/e Skin - no rash Neuro: Mental status: Alert and oriented x3. Language intact. Follows all commands CN:PERRL, EOMI, no droop, facial sensation is normal Motor: 5/5 throughout Sensory: intact to LTx4 Cerebellar: intact ftn, hts Abnormal movements: none Assessment 1. New onset generalized epilepsy Plan keppra to 750mg BID seizure precautions discussed neuro follow up in 3 weeks Plan of Care No Data Provided for This Section Social History Social History Date Source Social History TypeResponse 07/25/2017 [facility] Smoking Status Never smoker; Exposure to Tobacco Smoke None; Cigarette Smoking Last 365 Days No; Reg Smoking Cessation Counseling No entered on: 07/25/17 Family History No Data Provided for This Section Advance Directives No Data Provided for This Section Functional Status No Data Provided for This Section
--- OUTSIDE RECORDS SUMMARY | 2019-01-26 17:39 | XMS REPORT | CCD ---
:2000 Author Organization [facility] Care Team Providers Name Role Phone Osmel Swift Consulting Provider Allergies, Adverse Reactions, Alerts Substance Reaction Status NKDA Active Medications Medication Instructions Start Date End Date Status ibuprofen 400 mg, Route: PO, Drug form: TAB, ONCE, 06/30/2011 06/30/2011 Completed Priority: STAT, Start date: 06/30/11 14:47:00, Stop date: 06/30/11 14:47:00 Vital Signs Most recent to oldest [Reference Range]: 1 Height 157.48 cm (06/30/2011 14:07:00) Weight 50.909 kg (06/30/2011 14:07:00)
--- OUTSIDE RECORDS SUMMARY | 2019-01-26 17:39 | XMS REPORT | CCD ---
:2000 Author Organization [facility] Care Team Providers Name Role Phone Luke Handley Consulting Provider Allergies, Adverse Reactions, Alerts Substance Reaction Status NKDA Active
--- OUTSIDE RECORDS SUMMARY | 2019-01-26 17:40 | XMS REPORT ---
:2000 [facility] [address] [place] [address] Care Team Providers Name Role Phone Unavailable Unavailable Unavailable Payers Payer Name Policy Type Policy Number Effective Date Expiration Date Problems This patient has no known problems. Allergies, Adverse Reactions, Alerts Allergy Allergy Status Severity Reaction(s) Onset Inactive Treating Comments Name Type Date Date Clinician No Known DA Active U 2014-11 Allergies -18 00:00:0 0 Medications This patient has no known medications. Results Test Description Test Time Test Comments Text Results Atomic Results Result Comments CBC W/AUTO DIFF 2018-06-03 05:56:00 Test Item Value Reference Range Comments WHITE BLOOD CELL (test code=WBC) 2.79 x10 3/uL 4.5-11.0 RED BLOOD CELL (test code=RBC) 3.51 x10 6/uL 4.00-5.60 HEMOGLOBIN (test code=HGB) 11.0 g/dL 12.5-16.9 HEMATOCRIT (test code=HCT) 34.3 % 37.5-50.7 MEAN CELL VOLUME (test code=MCV) 97.7 fL 81.0-99.0 MEAN CELL HGB (test code=MCH) 31.3 pg 27.0-33.0 MEAN CELL HGB CONCETRATION (test code=MCHC) 32.1 g/dL 33.0-37.0 RED CELL DISTRIBUTION WIDTH CV (test code=RDW) 11.9 % 11.5-14.5 RED CELL DISTRIBUTION WIDTH SD (test code=RDW-SD) 42.5 fL 37.0-54.0 PLATELET COUNT (test code=PLT) 177 x10 3/uL 150-400 MEAN PLATELET VOLUME (test code=MPV) 10.7 fL 7.0-9.0 NEUTROPHIL % (test code=NT%) 35.7 % 56.0-77.0 IMMATURE GRANULOCYTE % (test code=IG%) 0.4 % 0.0-2.0 LYMPHOCYTE % (test code=LY%) 49.5 % 14.0-32.0 MONOCYTE % (test code=MO%) 10.8 % 4.8-9.0 EOSINOPHIL % (test code=EO%) 2.5 % 0.3-3.7 BASOPHIL % (test code=BA%) 1.1 % 0.0-2.0 NUCLEATED RBC % (test code=NRBC%) 0.0 % 0-0 NEUTROPHIL # (test code=NT#) 1.00 x10 3/uL 2.0-7.6 IMMATURE GRANULOCYTE # (test code=IG#) 0.01 x10 3/uL 0.00-0.03 LYMPHOCYTE # (test code=LY#) 1.38 x10 3/uL 1.0-3.8 MONOCYTE # (test code=MO#) 0.30 x10 3/uL 0.1-0.8 EOSINOPHIL # (test code=EO#) 0.07 x10 3/uL 0.0-0.2 BASOPHIL # (test code=BA#) 0.03 x10 3/uL 0.0-0.2 NUCLEATED RBC # (test code=NRBC#) 0.00 x10 3/uL 0.0-0.1 MANUAL DIFF REQUIRED (test code=MDIFF) NO COMMENTS: Daily while on [id number] 05:48:00 Test Item Value Reference Range Comments GLUBED (test code=GLUBED) 89 MG/DL 70-110 Performed by certified electroslag welding machine operator at [facility] THROMBOPLASTIN TIME [id number] 04:44:00 Test Item Value Reference Range Comments THROMBOPLASTIN TIME PARTIAL 56.5 Seconds 25.0-39.5 Therapeutic Range: (test code=PTT) 61.8-83.8 Sec Effective 06/04/2013 CBC W/AUTO [id number] 04:25:00 Test Item Value Reference Range Comments WHITE BLOOD CELL (test code=WBC) 3.67 x10 3/uL 4.5-11.0 RED BLOOD CELL (test code=RBC) 3.78 x10 6/uL 4.00-5.60 HEMOGLOBIN (test code=HGB) 11.8 g/dL 12.5-16.9 HEMATOCRIT (test code=HCT) 36.1 % 37.5-50.7 MEAN CELL VOLUME (test code=MCV) 95.5 fL 81.0-99.0 MEAN CELL HGB (test code=MCH) 31.2 pg 27.0-33.0 MEAN CELL HGB CONCETRATION (test code=MCHC) 32.7 g/dL 33.0-37.0 RED CELL DISTRIBUTION WIDTH CV (test code=RDW) 11.5 % 11.5-14.5 RED CELL DISTRIBUTION WIDTH SD (test 40.3 fL 37.0-54.0 code=RDW-SD) PLATELET COUNT (test code=PLT) 195 x10 3/uL 150-400 MEAN PLATELET VOLUME (test code=MPV) 10.5 fL 7.0-9.0 NEUTROPHIL % (test code=NT%) 33.3 % 56.0-77.0 IMMATURE GRANULOCYTE % (test code=IG%) 0.0 % 0.0-2.0 LYMPHOCYTE % (test code=LY%) 52.9 % 14.0-32.0 MONOCYTE % (test code=MO%) 11.4 % 4.8-9.0 EOSINOPHIL % (test code=EO%) 1.9 % 0.3-3.7 BASOPHIL % (test code=BA%) 0.5 % 0.0-2.0 NUCLEATED RBC % (test code=NRBC%) 0.0 % 0-0 NEUTROPHIL # (test code=NT#) 1.22 x10 3/uL 2.0-7.6 IMMATURE GRANULOCYTE # (test code=IG#) 0.00 x10 3/uL 0.00-0.03 LYMPHOCYTE # (test code=LY#) 1.94 x10 3/uL 1.0-3.8 MONOCYTE # (test code=MO#) 0.42 x10 3/uL 0.1-0.8 EOSINOPHIL # (test code=EO#) 0.07 x10 3/uL 0.0-0.2 BASOPHIL # (test code=BA#) 0.02 x10 3/uL 0.0-0.2 NUCLEATED RBC # (test code=NRBC#) 0.00 x10 3/uL 0.0-0.1 MANUAL DIFF REQUIRED (test code=MDIFF) NO COMMENTS: Daily while on [id number] 01:29:00 Test Item Value Reference Range Comments GLUBED (test code=GLUBED) 101 MG/DL 70-110 Performed by certified electroslag welding machine operator at [facility] THROMBOPLASTIN TIME [id number] 22:24:00 Test Item Value Reference Range Comments THROMBOPLASTIN TIME PARTIAL 56.2 Seconds 25.0-39.5 Therapeutic Range: (test code=PTT) 61.8-83.8 Sec Effective 06/04/2013 [id number] 21:21:00 Test Item Value Reference Range Comments GLUBED (test code=GLUBED) 112 MG/DL 70-110 Performed by certified electroslag welding machine operator at [facility] CREATINE KINASE (CK)2018-06-01 16:30:00 Test Item Value Reference Range Comments CREATINE KINASE (CK) (test 483 35-232 Result is in INTERNATIONAL code=CK) UNITS/LITER [id number] 16:30:00 Test Item Value Reference Range Comments TROPONIN-I (test 0.267 ng/mL 0.000-0.045 Negative: <=0.045 code=TROPI) Positive: >=0.046 Correlation with serial results, other cardiac markers andclinical findings is necessary to determine the clinicalsignificance of this result. Results using different methodologies should not be comparedto one another as quantitative results may vary by method. THROMBOPLASTIN TIME [id number] 14:18:00 Test Item Value Reference Range Comments THROMBOPLASTIN TIME PARTIAL 36.0 Seconds 25.0-39.5 Therapeutic Range: (test code=PTT) 61.8-83.8 Sec Effective 06/04/2013 - XR CHEST 1 [id number] 10:30:00 FAX: Soanl Cox MD [place]: St: ADM FAX: Brock Gordon [phone] FAX: Kermit Hansen [phone] Name: LISSETH SCHULTZ [facility] : 2000 Age/S: 18/M [address] [place] [address] Blvd Unit #: [id number] Loc: G.[address] [place] [address] Phys: Sonal Cox MD Acct: [id number] Dis Date: Status: ADM IN PHONE #: [phone] Exam Date: 06/01 1020 FAX #: [phone] Reason: shortness of breath EXAMS: CPT CODE: [id number] XR CHEST 1 V 52267 CHEST , ONE VIEW: HISTORY: Acute shortness of breath COMPARISON EXAM(S): 05/31/2018 FINDINGS: This single portable view was obtained at 0959 hours on 06/01/2018 and shows the cardiac silhouette to be normal and the lungs clear. No pleural fluid or evidence of pneumothorax. The skeletal structures are unremarkable. IMPRESSION: 1. Negative examination of the chest. 2. No change compared to 05/31/2018. SL:01 at 1030 Reported and signed by: Mateo Cuba M.D. CC: Sonal Cxo MD; Magui Montilla; Kermit Bazan MD Technologist: Aminata Denton, RT(R); Estrella Childs RT(R) [facility] Date/Time/By: 06/01/2018 (1030) : By: Alexys Orig Print D/T: S: 06/01/2018 (0821) PAGE 1 Signed ReportRESPIRATORY VIRUS PANEL [id number] 10:12:00 Test Item Value Reference Range Comments RSV A PCR (test code=RSV Negative Negative A) RSV B PCR (test code=RSV Negative Negative B) INFLUENZA A (test Negative Negative code=FLUAPCR) INFLUENZA A SUBTYPE H1 Negative Negative (test code=FLUAH1) INFLUENZA A SUBTYPE H3 Negative Negative (test code=FLUAH3) INFLUENZA B (test Negative Negative code=FLUBPCR) PARAINFLUENZA TYPE 1 PCR Negative Negative (test code=PIF1) PARAINFLUENZA TYPE 2 PCR Negative Negative (test code=PIF2) PARAINFLUENZA TYPE 3 PCR Negative Negative (test code=PIF3) PARAINFLUENZA TYPE 4 PCR Negative Negative (test code=PIF4) RHINOVIRUS PCR (test Negative Negative code=RHINO) METAPNEUMOVIRUS PCR (test Negative Negative code=METAPNEU) ADENOVIRUS PCR (test Negative Negative code=ADENOPCR) BORDETELLA PERTUSSIS DNA Negative Negative PCR (test code=BORDPERDNA) B PARAPERTUSSIS BY PCR Negative Negative (test code=BPARAPCR) BORDETELLA HOLMESII (test Negative Negative Testing was performed using code=BORDHOLM) nucleic acid amplificationincluding Bordetella parapertussis/brochiseptica, Bordetella holmesii, and Bordetella pertussis. COMPLEMENT BETA C1 (test RVP Comment Testing was performed using code=COMBC1) nucleic acid amplificationincluding influenza A, influenza A H1, influenza A H3,influenza B, RSV-A, RSV-B, Adenovirus, HumanMetapneumovirus, Parainfluenza 1,2,3 and 4, Rhinovirus, Bordetella parapertussis/brochiseptica, Bordetella holmesii, and Bordetella pertussis. [id number] 07:39:00 Test Item Value Reference Range Comments ACETAMINOPHEN (test code=ACET) < 2 ug/mL 10-30 [id number] 07:39:00 Test Item Value Reference Range Comments SALICYLATE (test code=LUIS ANTONIO) 2.2 mg/dL 2.8-20.0 [id number] 07:39:00 Test Item Value Reference Range Comments ALCOHOL (test code=ALC) < 0.003 G/dL <0.003 Ethyl Alcohol Interpretation: 0.100 gm/dL - Legally Intoxicated 0.300-0.400 gm/dL - Severely Intoxicated >0.400 gm/dL - Potentially LethalResults are for Medical purposes only, and not for Legal orEmployment evaluation purposes. [id number] 07:32:00 Test Item Value Reference Range Comments TROPONIN-I (test 0.438 ng/mL 0.000-0.045 Negative: <=0.045 code=TROPI) Positive: >=0.046 Correlation with serial results, other cardiac markers andclinical findings is necessary to determine the clinicalsignificance of this result. Results using different methodologies should not be comparedto one another as quantitative results may vary by method. COMMENTS: 3 troponins total (including troponin done in ED)THROMBOPLASTIN TIME [id number] 07:06:00 Test Item Value Reference Range Comments THROMBOPLASTIN TIME PARTIAL 72.8 Seconds 25.0-39.5 Therapeutic Range: (test code=PTT) 61.8-83.8 Sec Effective 06/04/2013 COMMENTS: DRAW PTT 6 HOURS AFTER INITIATION OF HEPARINLIPOPROTEIN [id number] 03:46:00 Test Item Value Reference Range Comments LIPOPROTEIN LDL (test 71 mg/dL 0-100 <100 [id number] NEAR code=LDL) OPTIMAL/ABOVE [id number] HIGH>AB=311 VERY HIGH*Guidelines provided by the National Cholesterol EducationProgram Adult Treatment Panel III [id number] 03:26:00 Test Item Value Reference Range Comments TROPONIN-I (test 0.557 ng/mL 0.000-0.045 Negative: <=0.045 code=TROPI) Positive: >=0.046 Correlation with serial results, other cardiac markers andclinical findings is necessary to determine the clinicalsignificance of this result. Results using different methodologies should not be comparedto one another as quantitative results may vary by method. COMMENTS: 3 troponins total (including troponin done in ED)COMPREHENSIVE METABOLIC [id number] 03:26:00 Test Item Value Reference Range Comments SODIUM (test code=NA) 147 mEq/L 134-147 POTASSIUM (test code=K) 3.4 mEq/L 3.4-5.0 CHLORIDE (test code=CL) 111 mEq/L 100-108 CARBON DIOXIDE (test code=CO2) 27 mEq/L 21-33 ANION GAP (test code=GAP) 12 0-20 GLUCOSE (test code=GLU) 81 mg/dL 70-110 BLOOD UREA NITROGEN (test 18 mg/dL 7-18 code=BUN) GLOMERULAR FILTRATION RATE 175.8 110-120 Units of (test code=GFR) measure=ml/min/1.73 m2 CREATININE (test code=CREAT) 0.7 mg/dL 0.6-1.3 TOTAL PROTEIN (test code=PROT) 7.2 g/dL 6.4-8.2 ALBUMIN (test code=ALB) 3.70 g/dL 3.4-5.0 CALCIUM (test code=CA) 8.3 mg/dL 8.0-10.5 BILIRUBIN TOTAL (test 0.50 mg/dL 0.0-1.0 code=BILT) SGOT/AST (test code=AST) 17 IUnit/L 15-37 SGPT/ALT (test code=ALT) 15 IUnit/L 15-65 ALKALINE PHOSPHATASE TOTAL 70 IUnit/L 30-225 (test code=ALKP) [id number] 03:26:00 Test Item Value Reference Range Comments PHOSPHOROUS (test code=PHOS) 3.6 mg/dL 2.5-4.9 CREATINE KINASE (CK)2018-06-01 03:26:00 Test Item Value Reference Range Comments CREATINE KINASE (CK) (test 496 35232 Result is in INTERNATIONAL code=CK) UNITS/LITER [id number] 03:26:00 Test Item Value Reference Range Comments MAGNESIUM (test code=MAG) 2.20 mg/dL 1.8-2.4 CALCIUM [id number] 03:26:00 Test Item Value Reference Range Comments CALCIUM IONIZED (test code=DAGOBERTO) 1.22 MMOL/L 1.12-1.32 LACTIC [id number] 03:24:00 Test Item Value Reference Range Comments LACTIC ACID (test code=LACT) 0.5 mmol/L 0.4-1.9 [id number] 03:11:00 Test Item Value Reference Range Comments AMMONIA (test code=AMM) 26 umol/L 0-35 COMPREHENSIVE METABOLIC [id number] 02:59:00 Test Item Value Reference Range Comments SODIUM (test code=NA) mEq/L 134-147 POTASSIUM (test code=K) mEq/L 3.4-5.0 CHLORIDE (test code=CL) mEq/L 100-108 CARBON DIOXIDE (test code=CO2) mEq/L 21-33 ANION GAP (test code=GAP) 0-20 GLUCOSE (test code=GLU) mg/dL 70-110 BLOOD UREA NITROGEN (test code=BUN) mg/dL 7-18 GLOMERULAR FILTRATION RATE (test code=GFR) 110-120 CREATININE (test code=CREAT) mg/dL 0.6-1.3 TOTAL PROTEIN (test code=PROT) g/dL 6.4-8.2 ALBUMIN (test code=ALB) g/dL 3.4-5.0 CALCIUM (test code=CA) mg/dL 8.0-10.5 BILIRUBIN TOTAL (test code=BILT) mg/dL 0.0-1.0 SGOT/AST (test code=AST) IUnit/L 15-37 SGPT/ALT (test code=ALT) IUnit/L 15-65 ALKALINE PHOSPHATASE TOTAL (test code=ALKP) IUnit/L 30-225 [id number] 02:59:00 Test Item Value Reference Range Comments PHOSPHOROUS (test code=PHOS) mg/dL 2.5-4.9 CREATINE KINASE (CK)2018-06-01 02:59:00 Test Item Value Reference Range Comments CREATINE KINASE (CK) (test code=CK) 35-232 [id number] 02:59:00 Test Item Value Reference Range Comments MAGNESIUM (test code=MAG) mg/dL 1.8-2.4 CALCIUM [id number] 02:59:00 Test Item Value Reference Range Comments CALCIUM IONIZED (test code=DAGOBERTO) 1.22 MMOL/L 1.12-1.32 ARTERIAL BLOOD [id number] 01:59:00 Test Item Value Reference Range Comments ARTERIAL BLOOD GAS PH (test code=PHA) 7.332 7.35-7.45 ARTERIAL BLOOD GAS PCO2 (test code=PCO2A) 44.2 mmHg 35-45 ARTERIAL BLOOD GAS PO2 (test code=PO2A) 152 mmHg 80-100 BICARBONATE TOTAL HCO3 (test code=HCO3) 23.5 mmol/L 22.0-26.0 BASE EXCESS (test code=CRISTOFER) -3.0 mmol/L -4-4 ABG O2 SATURATION (test code=SATA) 99 % 90-100 ABG DELIVERY (test code=JOSE CARLOS) Cannula ABG TEMPERATURE (test code=TEMPA) 98.0 F ABG SITE (test code=SITEA) R Rad TCO2 ARTERIAL (test code=TCO2A) 25 DRUGS OF ABUSE SCREEN [id number] 01:28:00 Test Item Value Reference Range Comments URN COCAINE (test code=COCAURN) NEGATIVE NEGATIVE URN CANNABINOIDS (test POSITIVE NEGATIVE code=CANNABURN) URN AMPHETAMINE (test NEGATIVE NEGATIVE code=AMPHETURN) URN BARBITURATE (test NEGATIVE NEGATIVE code=BARBITURN) URN BENZODIAZEPINE (test NEGATIVE NEGATIVE Cut-off value:200 ng/mL code=BENZOURN) URN OPIATES (test NEGATIVE NEGATIVE Cut-off value:2000 ng/mL code=OPIATURN) URN PHENCYCLIDINE (PCP) (test NEGATIVE NEGATIVE Cutoffs:Barbiturates code=PHENCURN) 200 ng/mLBenzodiazepines 200 ng/mLTHC Cannabinoids 50 ng/mLOpiates(Morphine) 2000 ng/mLAmphetamine 1000 ng/mLCocaine 300 ng/mLPCP phencyclidine 25 ng/mL Unconfirmed screening results shouldnot be used for non-medical purposes. DRUGS OF ABUSE SCREEN [id number] 01:19:00 Test Item Value Reference Range Comments URN COCAINE (test code=COCAURN) NEGATIVE NEGATIVE URN CANNABINOIDS (test NEGATIVE code=CANNABURN) URN AMPHETAMINE (test NEGATIVE NEGATIVE code=AMPHETURN) URN BARBITURATE (test NEGATIVE NEGATIVE code=BARBITURN) URN BENZODIAZEPINE (test NEGATIVE NEGATIVE Cut-off value:200 ng/mL code=BENZOURN) URN OPIATES (test NEGATIVE NEGATIVE Cut-off value:2000 ng/mL code=OPIATURN) URN PHENCYCLIDINE (PCP) (test NEGATIVE NEGATIVE Cutoffs:Barbiturates code=PHENCURN) 200 ng/mLBenzodiazepines 200 ng/mLTHC Cannabinoids 50 ng/mLOpiates(Morphine) 2000 ng/mLAmphetamine 1000 ng/mLCocaine 300 ng/mLPCP phencyclidine 25 ng/mL Unconfirmed screening results shouldnot be used for non-medical purposes. PROTHROMBIN [id number] 00:56:00 Test Item Value Reference Range Comments PROTHROMBIN TIME PATIENT 15.5 SECONDS 9.3-12.9 (test code=PTP) INTERNATIONAL NORMAL RATIO 1.4 0.8-1.2 TARGET INR BY (test code=INR) INDICATION Indication INR1. Prophylaxis of venous thrombosis 2.0 - 3.0 (orthopedic surgery), Prophylaxis of venous thrombosis (other than high-risk surgery), Treatment of Deep Vein Thrombosis/Pulmonary Embolism, Prevention of systemic embolism - Tissue heart valves, Acute Myocardial Infarction (to prevent systemic embolism), Valvular heart disease, Atrial Fibrillation, Bileaflet mechanical valve in aortic position.2. Mechanical prosthetic valves (high risk), 2.5 - 3.5 Presence of Lupus Anticoagulant or Antiphospholipid Antibodies, Prevention of systemic embolism - Acute Myocardial Infarction (to prevent recurrent infarct). COMMENTS: IF NOT ALREADY DONE WITHIN LAST 24 HOURSTHROMBOPLASTIN TIME [id number] 00:56:00 Test Item Value Reference Range Comments THROMBOPLASTIN TIME PARTIAL 25.4 Seconds 25.0-39.5 Therapeutic Range: (test code=PTT) 61.8-83.8 Sec Effective 06/04/2013 COMMENTS: IF NOT ALREADY DONE WITHIN LAST 24 HOURS- XR CHEST 1 [id number] 00:16 :00 FAX: Magui Gordon [phone] [place]: St: ADM FAX: Michele Serna MD [phone] Name: MAURICEJOHNELIDIANAERIKCHATA [facility] : 2000 Age/S: 18/M [address] [place] [address] Unit #: [id number] Loc: G.M326 [place] [address] Phys: Michele Serna MD Acct: [id number] Dis Date: Status: ADM IN PHONE #: [phone] Exam Date: 05/31/2018 0011 FAX #: [phone] Reason: SeizureAdult EXAMS: CPT CODE: [id number] XR CHEST 1 V 43981 Chest, single view dated 05/31/2018. HISTORY: Seizure. No prior studies are available for comparison. The heart is normal in size. The cardiomediastinal shadow appears within normal limits. The lungs appear clear. The pulmonary vasculature is normal in caliber. No acute pleural space abnormalities are detected. IMPRESSION: 1. No radiographic evidence of acute cardiopulmonary disease. SL: 131 at 0016 Reported and signed by: Remi Jimenez M.D. CC: Magui Montilla; Michele Serna MD Technologist: RT Luis(R); [place] [facility] Date/Time/By: 06/01/2018 (0016) : By: Francis Orig Print D/T : S: 06/02/2018 (0750) PAGE 1 Signed ReportTROPONIN-I [id number] 00:11:00 Test Item Value Reference Range Comments TROPONIN-I RAPID (test 0.28 ng/mL 0.00-0.08 Performed by certified electroslag welding machine operator at code[facility] Global Task Force with joint leadership from the EuropeanSociety of Cardiology (ESC), the [place] [employer] Foundation (ACCF), the [place] [employer] Association(AHA) and the World Heart Federation (WHF) refined past criteria of myocardial infarction (CT) with a universal definition of myocardial infarction that supports the use of cTnI as a preferred biomarker for myocardial injury. The universal definition of CT, according to this taskforce, is defined as a typical rise and gradual fall ofcardiac biomarkers (preferably troponin) with at least onevalue above the 99th percentile of the upper reference limit (URL) together with evidence of myocardial ischemia with at least one of the following:* ischemic symptoms,* pathological Q waves on electrocardiogram (ECG),* ischemic ECG changes,* or imaging evidence of new loss of viable myocardium or new regional wall motion abnormality. An elevated troponin value alone is not sufficient todiagnose a myocardial infarction. Rather, the patient sclinical presentation (history, physical exam) and ECGshould be used in conjunction with troponin in thediagnostic evaluation of suspected myocardial infarction. Aserial sampling protocol is recommended to facilitate the identification of temporal changes in troponin levels characteristic of CT. [id number] 00:00:00 Test Item Value Reference Range Comments GLUBED (test code=GLUBED) 88 MG/DL 70-110 Performed by certified electroslag welding machine operator at [facility] - CT HEAD/BRAIN W/O [id number] 00:00:00 Name: LISSETH SCHULTZ [facility] : 2000 Age/S: 18 / M [address] [place] [address] Blvd Unit #: [id number] Loc: [id number] Phys: Lindsey Galeano DO Acct: [id number] Dis Date: Status: ADM IN PHONE #: [phone] Exam Date: 0143 FAX #: [phone] Reason: seizure EXAMS: CPTCODE: [id number] CT HEAD/BRAIN W/O CONT 67901 EXAM: CT Head Without Contrast EXAM DATE/TIME: 06/01/2018 1:27 AM CLINICAL HISTORY: 18 years old, male; Signs and symptoms; Other: Seizure TECHNIQUE : Axial computed tomography images of the head/brain without contrast. All CT scans at this facility use at least one of these dose optimization techniques: automated exposure control; mA and/or kV adjustment per patient size (includes targeted exams where dose is matched to clinical indication); or iterative reconstruction. Coronal and sagittal reformatted images were created and reviewed. COMPARISON: No relevant prior studies available. FINDINGS : Brain: Normal. No hemorrhage. No significant white matter disease. No edema. Ventricles: Normal. No ventriculomegaly. Bones/ joints: Normal. No acute fracture. Sinuses: Normal as visualized. No acute sinusitis. Mastoid air cells: Normal as visualized. No mastoid effusion. Soft tissues: Normal. IMPRESSION: No acute intracranial abnormality. at 0217 Reported and signed by: Prasanna Wilks M.D. CC: Magui Montilla; Lindsey Galeano DO; Kermit Bazan MD Technologist:Hector Mishra, RT(R)(CT) CTDI: DLP: Trnscb Date/Time: 06/01/2018 (216) [email or web address] Orig Print D/T: S: 06/01/2018 (216) CTDI: DLP: PAGE 1 Signed ReportCBC W/AUTO [id number] 23:26:00 Test Item Value Reference Range Comments WHITE BLOOD CELL (test code=WBC) 9.96 x10 3/uL 4.5-11.0 RED BLOOD CELL (test code=RBC) 4.34 x10 6/uL 4.00-5.60 HEMOGLOBIN (test code=HGB) 13.4 g/dL 12.5-16.9 HEMATOCRIT (test code=HCT) 41.3 % 37.5-50.7 MEAN CELL VOLUME (test code=MCV) 95.2 fL 81.0-99.0 MEAN CELL HGB (test code=MCH) 30.9 pg 27.0-33.0 MEAN CELL HGB CONCETRATION (test code=MCHC) 32.4 g/dL 33.0-37.0 RED CELL DISTRIBUTION WIDTH CV (test code=RDW) 11.8 % 11.5-14.5 RED CELL DISTRIBUTION WIDTH SD (test 41.1 fL 37.0-54.0 code=RDW-SD) PLATELET COUNT (test code=PLT) 219 x10 3/uL 150-400 MEAN PLATELET VOLUME (test code=MPV) 11.0 fL 7.0-9.0 NEUTROPHIL % (test code=NT%) 78.1 % 56.0-77.0 IMMATURE GRANULOCYTE % (test code=IG%) 0.3 % 0.0-2.0 LYMPHOCYTE % (test code=LY%) 15.0 % 14.0-32.0 MONOCYTE % (test code=MO%) 6.2 % 4.8-9.0 EOSINOPHIL % (test code=EO%) 0.1 % 0.3-3.7 BASOPHIL % (test code=BA%) 0.3 % 0.0-2.0 NUCLEATED RBC % (test code=NRBC%) 0.0 % 0-0 NEUTROPHIL # (test code=NT#) 7.78 x10 3/uL 2.0-7.6 IMMATURE GRANULOCYTE # (test code=IG#) 0.03 x10 3/uL 0.00-0.03 LYMPHOCYTE # (test code=LY#) 1.49 x10 3/uL 1.0-3.8 MONOCYTE # (test code=MO#) 0.62 x10 3/uL 0.1-0.8 EOSINOPHIL # (test code=EO#) 0.01 x10 3/uL 0.0-0.2 BASOPHIL # (test code=BA#) 0.03 x10 3/uL 0.0-0.2 NUCLEATED RBC # (test code=NRBC#) 0.00 x10 3/uL 0.0-0.1 MANUAL DIFF REQUIRED (test code=MDIFF) NO [id number] 23:14:00 Test Item Value Reference Range Comments GLUBED (test code=GLUBED) 62 MG/DL 70-110 Performed by certified electroslag welding machine operator at [facility] CHEMISTRY 8 [id number] 23:09:00 Test Item Value Reference Range Comments ISTAT-SODIUM (test code=NAP) MMOL/L 134-147 ISTAT-POTASSIUM (test code=KP) MMOL/L 3.4-5.0 ISTAT-CHLORIDE (test code=CLP) MMOL/L 100-108 ISTAT CARBON DIOXIDE (test code=ISTAT-CO2) mmol/L 21-33 ISTAT CALCIUM IONIZED (test code=ISTAT-DAGOBERTO) MG/DL 1.12-1.32 ISTAT-GLUCOSE (test code=GLUP) MG/DL 70-110 ISTAT-BUN (test code=BUNP) MG/DL 7-18 BEDSIDE CREATININE (test code=CREATBED) MG/DL 0.6-1.3 GLOMERULAR FILTRATION RATE POC (test code=GFRBED) 124 ML/MIN CHEMISTRY 8 [id number] 23:09:00 Test Item Value Reference Range Comments ISTAT-SODIUM (test code=NAP) 146 MMOL/L 134-147 ISTAT-POTASSIUM (test 3.3 MMOL/L 3.4-5.0 code=KP) ISTAT-CHLORIDE (test 105 MMOL/L 100-108 Performed by certified code=CLP) 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
[2019-01-26] MEDS ORDERED: NA CHLORIDE 0.9% 1,000 ML ONE (18:15)
[2019-01-26 18:19] LABS: Absolute Lymphocytes (CBC) 1.1 K/uL (0.7-4.9); Basophils % 0.5 % (0-1.3); Hematocrit 40.2 % (39.6-49.0); Lymphocytes % 27.9 % (15.3-44.8); MPV 8.7 fL (7.6-11.3); RBC Red Blood Cell Count 4.38 M/uL (4.33-5.43)
[2019-01-26] MEDS ORDERED: ONDANSETRON 4 MG/2 ML VIAL ONE (18:32)
[2019-01-26] MEDS ORDERED: MORPHINE 4 MG/ML SYR ONE (18:32)
[2019-01-26 18:36] LABS: BUN Blood Urea Nitrogen 13 mg/dL (7-18); Bicarbonate 27 mmol/L (21-32); Glucose Level 84 mg/dL (74-106); Potassium 3.9 mmol/L (3.5-5.1); Sodium Level 142 mmol/L (136-145)
[2019-01-26] MEDS ORDERED: levETIRAcetam 1,000 MG in NA CHLORIDE 0.9% 100 ML IV ONE (19:00)
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
[2019-01-26] MEDS ORDERED: FENTANYL CITR 100 MCG/2 ML ONE (19:44)
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
[2019-01-26 22:03] VITALS: TEMP 98.5
[2019-01-26 22:04] VITALS: BP 129/84; O2SAT 100
== END 2019-01-26 21:12 | disposition home or self-care (01) ==
LOC: ER 17:34
DX: S40.012A Contusion of left shoulder, initial encounter (principal); V09.9XXA Pedestrian injured in unspecified transport accident, initial encounter; Y92.481 Parking lot as the place of occurrence of the external cause; G40.909 Epilepsy, unspecified, not intractable, without status epilepticus
CPT/HCPCS: 96365; 96361; 85025; 80048; 36415; 70450; 72125; 71260; 74177; 73620; 73030; 96375; 99285; Q9967; J3010; J1953; J7030; J2405

== ENCOUNTER 2019-04-24 22:06 | Emergency (ER) | payer OTHER ==
--- OUTSIDE RECORDS SUMMARY | 2019-04-24 22:09 | XMS REPORT ---
:2000 Author Organization [facility] Address [address] [place] [address] Care Team Providers Name Role Phone Unavailable [...] (test code=MDIFF) NO COMMENTS: Daily while on [id number] 05:48:00 Test Item Value Reference Range Comments GLUBED (test code=GLUBED) 89 MG/DL 70-110 Performed by certified skiver machine operator at [facility] THROMBOPLASTIN TIME [id number] 04:44:00 Test Item Value Reference Range Comments THROMBOPLASTIN TIME PARTIAL 56.5 Seconds 25.0-39.5 Therapeutic Range: (test code=PTT) 61.8-83.8 Sec Effective 06/04/2013 CBC W/AUTO [id number] 04:25:00 Test Item Value Reference Range Comments [...] (test code=MDIFF) NO COMMENTS: Daily while on [id number] 01:29:00 Test Item Value Reference Range Comments GLUBED (test code=GLUBED) 101 MG/DL 70-110 Performed by certified skiver machine operator at [facility] THROMBOPLASTIN TIME [id number] 22:24:00 Test Item Value Reference Range Comments THROMBOPLASTIN TIME PARTIAL 56.2 Seconds 25.0-39.5 Therapeutic Range: (test code=PTT) 61.8-83.8 Sec Effective 06/04/2013 [id number] 21:21:00 Test Item Value Reference Range Comments GLUBED (test code=GLUBED) 112 MG/DL 70-110 Performed by certified skiver machine operator at [facility] CREATINE KINASE (CK)2018-06-01 16:30:00 Test Item Value Reference Range Comments CREATINE KINASE (CK) (test 483 35-232 Result is in INTERNATIONAL code=CK) UNITS/LITER [id number] 16:30:00 Test Item Value Reference Range Comments TROPONIN-I (test 0.267 ng/mL 0.000-0.045 Negative: <=0.045 code=TROPI) Positive: >=0.046 Correlation with serial results, other cardiac markers andclinical findings is necessary to determine the clinicalsignificance of this result. Results using different methodologies should not be comparedto one another as quantitative results may vary by method. THROMBOPLASTIN TIME [id number] 14:18:00 Test Item Value Reference Range Comments THROMBOPLASTIN TIME PARTIAL 36.0 Seconds 25.0-39.5 Therapeutic Range: (test code=PTT) 61.8-83.8 Sec Effective 06/04/2013 - XR CHEST 1 [id number] 10:30:00 FAX: Sonal Cox MD [place]: St: ADM FAX: Brock Gordon [phone] FAX: Kermit Hansen [phone] Name: LISSETH SCHULTZ [facility] : 2000 Age/S: 18/M [address] [place] [address] Blvd Unit #: [id number] Loc: G.M326 [place] [address] Phys: Sonal Cox MD Acct: [id number] Dis Date: Status: ADM IN PHONE #: [phone] Exam Date: 06/01 1020 FAX #: [phone] Reason: shortness of breath EXAMS: CPT CODE: [id number] XR CHEST 1 V 47018 CHEST , ONE VIEW: HISTORY: Acute shortness [...] signed by: Mateo Cuba M.D. CC: Sonal Cox MD; Magui Montilla; Kermit Bazan MD Technologist: Aminata Denton, RT(R); Estrella Childs RT(R) [facility] Date/Time/By: 06/01/2018 (1030) : By: Alexys Orig Print D/T: S: 06/01/2018 (1829) PAGE 1 Signed ReportRESPIRATORY VIRUS PANEL [id number] 10:12:00 Test Item Value Reference Range Comments [...] Bordetella parapertussis/brochiseptica, Bordetella holmesii, and Bordetella pertussis. [id number] 07:39:00 Test Item Value Reference Range Comments ACETAMINOPHEN (test code=ACET) < 2 ug/mL 10-30 [id number] 07:39:00 Test Item Value Reference Range Comments SALICYLATE (test code=LUIS ANTONIO) 2.2 mg/dL 2.8-20.0 [id number] 07:39:00 Test Item Value Reference Range Comments ALCOHOL (test code=ALC) < 0.003 G/dL <0.003 Ethyl Alcohol Interpretation: 0.100 gm/dL - Legally Intoxicated 0.300-0.400 gm/dL - Severely Intoxicated >0.400 gm/dL - Potentially LethalResults are for Medical purposes only, and not for Legal orEmployment evaluation purposes. [id number] 07:32:00 Test Item Value Reference Range Comments TROPONIN-I (test 0.438 ng/mL 0.000-0.045 Negative: <=0.045 code=TROPI) Positive: >=0.046 Correlation with serial results, other cardiac markers andclinical findings is necessary to determine the clinicalsignificance of this result. Results using different methodologies should not be comparedto one another as quantitative results may vary by method. COMMENTS: 3 troponins total (including troponin done in ED)THROMBOPLASTIN TIME [id number] 07:06:00 Test Item Value Reference Range Comments THROMBOPLASTIN TIME PARTIAL 72.8 Seconds 25.0-39.5 Therapeutic Range: (test code=PTT) 61.8-83.8 Sec Effective 06/04/2013 COMMENTS: DRAW PTT 6 HOURS AFTER INITIATION OF HEPARINLIPOPROTEIN [id number] 03:46:00 Test Item Value Reference Range Comments LIPOPROTEIN LDL (test 71 mg/dL 0-100 <100 [id number] NEAR code=LDL) OPTIMAL/ABOVE [id number] HIGH>SM=461 VERY HIGH*Guidelines provided by the National Cholesterol EducationProgram Adult Treatment Panel III [id number] 03:26:00 Test Item Value Reference Range Comments TROPONIN-I (test 0.557 ng/mL 0.000-0.045 Negative: <=0.045 code=TROPI) Positive: >=0.046 Correlation with serial results, other cardiac markers andclinical findings is necessary to determine the clinicalsignificance of this result. Results using different methodologies should not be comparedto one another as quantitative results may vary by method. COMMENTS: 3 troponins total (including troponin done in ED)COMPREHENSIVE METABOLIC [id number] 03:26:00 Test Item Value Reference Range Comments [...] PHOSPHATASE TOTAL 70 IUnit/L 30-225 (test code=ALKP) [id number] 03:26:00 Test Item Value Reference Range Comments PHOSPHOROUS (test code=PHOS) 3.6 mg/dL 2.5-4.9 CREATINE KINASE (CK)2018-06-01 03:26:00 Test Item Value Reference Range Comments CREATINE KINASE (CK) (test 496 35232 Result is in INTERNATIONAL code=CK) UNITS/LITER [id number] 03:26:00 Test Item Value Reference Range Comments MAGNESIUM (test code=MAG) 2.20 mg/dL 1.8-2.4 CALCIUM [id number] 03:26:00 Test Item Value Reference Range Comments CALCIUM IONIZED (test code=DAGOBERTO) 1.22 MMOL/L 1.12-1.32 LACTIC [id number] 03:24:00 Test Item Value Reference Range Comments LACTIC ACID (test code=LACT) 0.5 mmol/L 0.4-1.9 [id number] 03:11:00 Test Item Value Reference Range Comments AMMONIA (test code=AMM) 26 umol/L 0-35 COMPREHENSIVE METABOLIC [id number] 02:59:00 Test Item Value Reference Range Comments [...] ALKALINE PHOSPHATASE TOTAL (test code=ALKP) IUnit/L 30-225 [id number] 02:59:00 Test Item Value Reference Range Comments PHOSPHOROUS (test code=PHOS) mg/dL 2.5-4.9 CREATINE KINASE (CK)2018-06-01 02:59:00 Test Item Value Reference Range Comments CREATINE KINASE (CK) (test code=CK) 35-232 [id number] 02:59:00 Test Item Value Reference Range Comments MAGNESIUM (test code=MAG) mg/dL 1.8-2.4 CALCIUM [id number] 02:59:00 Test Item Value Reference Range Comments CALCIUM IONIZED (test code=DAGOBERTO) 1.22 MMOL/L 1.12-1.32 ARTERIAL BLOOD [id number] 01:59:00 Test Item Value Reference Range Comments [...] (test code=TCO2A) 25 DRUGS OF ABUSE SCREEN [id number] 01:28:00 Test Item Value Reference Range Comments [...] for non-medical purposes. DRUGS OF ABUSE SCREEN [id number] 01:19:00 Test Item Value Reference Range Comments [...] shouldnot be used for non-medical purposes. PROTHROMBIN [id number] 00:56:00 Test Item Value Reference Range Comments [...] ALREADY DONE WITHIN LAST 24 HOURSTHROMBOPLASTIN TIME [id number] 00:56:00 Test Item Value Reference Range Comments THROMBOPLASTIN TIME PARTIAL 25.4 Seconds 25.0-39.5 Therapeutic Range: (test code=PTT) 61.8-83.8 Sec Effective 06/04/2013 COMMENTS: IF NOT ALREADY DONE WITHIN LAST 24 HOURS- XR CHEST 1 [id number] 00:16 :00 FAX: Magui Gordon [phone] [place]: St: ADM FAX: Michele Serna MD [phone] Name: MAURICEJOHNELIDIANAERIKCHATA [facility] : 2000 Age/S: 18/M [address] [place] [address] Unit #: [id number] Loc: G.M326 [place] [address] Phys: Michele Serna MD Acct: [id number] Dis Date: Status: ADM IN PHONE #: [phone] Exam Date: 05/31/2018 0011 FAX #: [phone] Reason: SeizureAdult EXAMS: CPT CODE: [id number] XR CHEST 1 V 08799 Chest, single view dated 05/31/2018. HISTORY: Seizure. [...] Serna MD Technologist: RT Luis(R); [place] [address] Date/Time/By: 06/01/2018 (0016) : By: Francis Orig Print D/T : S: 06/02/2018 (0750) PAGE 1 Signed ReportTROPONIN-I [id number] 00:11:00 Test Item Value Reference Range Comments TROPONIN-I RAPID (test 0.28 ng/mL 0.00-0.08 Performed by certified skiver machine operator at code=[facility]) [facility] Global Task Force with joint leadership from the EuropeanSociety of Cardiology (ESC), the [place] College of Cardiology Foundation (ACCF), the [place] Heart Association(AHA) and the World Heart Federation (WHF) refined past criteria of myocardial infarction ([place]) with a universal definition of myocardial infarction that supports the use of cTnI as a preferred biomarker for myocardial injury. The universal definition of [place], according to this taskforce, is defined as [...] temporal changes in troponin levels characteristic of [place]. [id number] 00:00:00 Test Item Value Reference Range Comments GLUBED (test code=GLUBED) 88 MG/DL 70-110 Performed by certified skiver machine operator at [facility] - CT HEAD/BRAIN W/O [id number] 00:00:00 Name: LISSETH SCHULTZ [facility] : 2000 Age/S: 18 / M [address] [place] [address] Blvd Unit #: [id number] Loc: [place] [id number] Phys: Lindsey Galeano DO Acct: [id number] Dis Date: Status: ADM IN PHONE #: [phone] Exam Date: 0143 FAX #: [phone] Reason: seizure EXAMS: CPTCODE: [id number] CT HEAD/BRAIN W/O CONT 57369 EXAM: CT Head Without Contrast EXAM DATE/TIME: [...] CTDI: DLP: PAGE 1 Signed ReportCBC W/AUTO [id number] 23:26:00 Test Item Value Reference Range [...] 0.0-0.1 MANUAL DIFF REQUIRED (test code=MDIFF) NO [id number] 23:14:00 Test Item Value Reference Range Comments GLUBED (test code=GLUBED) 62 MG/DL 70-110 Performed by certified skiver machine operator at [facility] CHEMISTRY 8 [id number] 23:09:00 Test Item Value Reference Range Comments ISTAT-SODIUM (test code=NAP) MMOL/L 134-147 ISTAT-POTASSIUM (test code=KP) MMOL/L 3.4-5.0 ISTAT-CHLORIDE (test code=CLP) MMOL/L 100-108 ISTAT CARBON DIOXIDE (test code=ISTAT-CO2) mmol/L 21-33 ISTAT CALCIUM IONIZED (test code=ISTAT-DAGOBERTO) MG/DL 1.12-1.32 ISTAT-GLUCOSE (test code=GLUP) MG/DL 70-110 ISTAT-BUN (test code=BUNP) MG/DL 7-18 BEDSIDE CREATININE (test code=CREATBED) MG/DL 0.6-1.3 GLOMERULAR FILTRATION RATE POC (test code=GFRBED) 124 ML/MIN CHEMISTRY 8 [id number] 23:09:00 Test Item Value Reference Range Comments ISTAT-SODIUM (test code=NAP) 146 MMOL/L 134-147 ISTAT-POTASSIUM (test 3.3 MMOL/L 3.4-5.0 code=KP) ISTAT-CHLORIDE (test 105 MMOL/L 100-108 Performed by certified code=CLP) skiver machine operator at [facility] ISTAT CARBON DIOXIDE (test 27.0 mmol/L 21-33 code=ISTAT-CO2) ISTAT CALCIUM IONIZED (test 1.25 MG/DL 1.12-1.32 code=ISTAT-DAGOBERTO) ISTAT-GLUCOSE (test 85 MG/DL 70-110 code=GLUP) ISTAT-BUN (test code=BUNP) 20 MG/DL 7-18 BEDSIDE CREATININE (test 1.0 MG/DL 0.6-1.3 code=CREATBED) GLOMERULAR FILTRATION RATE 124 ML/MIN POC (test code=GFRBED)
[2019-04-24] MEDS ORDERED: NA CHLORIDE 0.9% 1,000 ML ONE (22:36)
[2019-04-24] MEDS ORDERED: ONDANSETRON 4 MG/2 ML VIAL ONE (22:36)
[2019-04-24] MEDS ORDERED: MORPHINE 2 MG/ML SYR ONE ×2 (22:36→23:36)
[2019-04-24 22:46] LABS: Absolute Lymphocytes (CBC) 0.5 K/uL (0.7-4.9); Basophils % 0.3 % (0-1.3); Hematocrit 41.2 % (39.6-49.0); Lymphocytes % 6.9 % (15.3-44.8); MPV 8.4 fL (7.6-11.3); RBC Red Blood Cell Count 4.53 M/uL (4.33-5.43)
[2019-04-24 23:00] LABS: ALT/SGPT 19 U/L (12-78); AST/SGOT 11 U/L (15-37); Albumin 4.5 g/dL (3.4-5.0); Alkaline Phosphatase 77 U/L (45-117); BUN Blood Urea Nitrogen 16 mg/dL (7-18); Bicarbonate 26 mmol/L (21-32); Bilirubin Direct 0.2 mg/dL (0-0.2); Bilirubin Total 0.7 mg/dL (0.2-1.0); Glucose Level 104 mg/dL (74-106); Lipase 72 U/L (73-393); Potassium 3.5 mmol/L (3.5-5.1); Protein, Total 9.3 g/dL (6.4-8.2); Sodium Level 141 mmol/L (136-145)
--- NOTE | 2019-04-25 00:35 | ER ---
Nurse's Notes [facility] Name: Tosin Bain Age: 19 yrs Sex: Male : 2000 Arrival Date: 04/24/2019 Time: 22:09 Bed 7 Private MD: Diagnosis: Generalized abdominal pain;Nausea and vomiting Presentation: 04/24 22:29 Presenting complaint: Patient states: chills, SHOEMAKER, abd pain, \T\ vomiting since 1500 this aa1 afternoon. Reports he also had a seizure this afternoon as well. States he has a hx of seizures and takes Tegretol for them. Transition of care: patient was not received from another setting of care. Onset of symptoms was April 24, 2019 at 15:00. Risk Assessment: Do you want to hurt yourself or someone else? Patient reports no desire to harm self or others. Initial Sepsis Screen: Does the patient meet any 2 criteria? HR > 90 bpm. Does the patient have a suspected source of infection? Yes: Acute abdominal pain. Care prior to arrival: None. 22:29 Method Of Arrival: Ambulatory aa1 22:29 Acuity: VIKTORIA 3 aa1 Triage Assessment: 22:35 General: Appears in no apparent distress. comfortable, Behavior is calm, cooperative, aa1 appropriate for age. Pain: Complains of pain in abdomen. Historical: - Allergies: 22:35 No Known Allergies; aa1 - Home Meds: 22:35 Tegretol Oral [Active]; aa1 - PMHx: 22:35 Seizures; aa1 - PSHx: 22:35 None; aa1 - Immunization history:: Flu vaccine is not up to date. - Social history:: Smoking status: Patient uses tobacco products, denies chronic smoking, but will smoke occasionally. - Ebola Screening: : Patient denies exposure to infectious person Patient denies travel to an Ebola-affected area in the 21 days before illness onset. Screenin:42 Abuse screen: Denies threats or abuse. Denies injuries from another. Nutritional lp1 screening: No deficits noted. Tuberculosis screening: No symptoms or risk factors identified. Fall Risk None identified. Assessment: 22:20 General: Appears uncomfortable, Behavior is appropriate for age. Pain: Complains of lp1 pain in abdomen Pain currently is 10 out of 10 on a pain scale. Quality of pain is described as crampy, sharp. Neuro: Level of Consciousness is awake, alert, obeys commands, Oriented to person, place, time, situation. Cardiovascular: Patient's skin is warm and dry. Respiratory: Respiratory effort is even, unlabored. GI: Abdomen is flat, Bowel sounds present X 4 quads. Reports diarrhea, nausea, vomiting. : No signs and/or symptoms were reported regarding the genitourinary system. EENT: No signs and/or symptoms were reported regarding the EENT system. Derm: Skin is intact, Skin is dry, Skin is normal. Musculoskeletal: No deficits noted. 23:38 Reassessment: Patient returned from CT at this time; Continued pain to lower abdomen. lp1 04/25 00:50 Reassessment: On discharge, patient vomited small about of clear fluid, Provider lp1 notified. Vital Signs: 04/24 22:35 BP 164 / 87; Pulse 95; Resp 18; Temp 98.3; Pulse Ox 96% on R/A; Weight 77.11 kg; Height aa1 6 ft. 2 in. (187.96 cm); Pain 10/10; 22:41 BP 132 / 80; Pulse 100; Resp 16; Pulse Ox 100% on R/A; Pain 10/10; lp1 23:39 BP 141 / 90; Pulse 97; Resp 18; Pulse Ox 100% on R/A; Pain 10/10; lp1 04/25 00:45 BP 126 / 84; Pulse 86; Resp 16; Pulse Ox 98% on R/A; lp1 04/24 22:35 Body Mass Index 21.83 (77.11 kg, 187.96 cm) aa1 ED Course: 04/24 22:09 Patient arrived in ED. cl3 22:10 Jacqui Pena FNP-C is PHCP. kb 22:10 Sandor Hartley MD is Attending Physician. kb 22:30 Inserted saline lock: 20 gauge in right forearm, using aseptic technique. Blood lp1 collected. 22:33 Triage completed. aa1 22:35 Arm band placed on right wrist. aa1 22:48 Jillian Ambriz, ARTURO is Primary Nurse. lp1 22:50 Patient has correct armband on for positive identification. lp1 04/25 00:27 CT Abd/Pelvis - IV Contrast Only In Process Unspecified. EDMS 01:03 No provider procedures requiring assistance completed. IV discontinued, No lp1 redness/swelling at site. Pressure dressing applied. Administered Medications: 04/24 22:41 Drug: NS 0.9% 1000 ml Route: IV; Rate: 1000 ml; Site: right forearm; lp1 23:45 Follow up: IV Status: Completed infusion; IV Intake: 1000ml lp1 22:41 Drug: Zofran 4 mg Route: IVP; Site: right forearm; lp1 23:38 Follow up: Response: No adverse reaction lp1 22:41 Drug: morphine 2 mg {Note: RASS 1.} Route: IVP; Site: right forearm; lp1 23:37 Follow up: Response: No change in condition lp1 23:38 Drug: morphine 2 mg {Note: RASS 1.} Route: IVP; Site: right forearm; lp1 04/25 01:01 Follow up: Response: No adverse reaction; Pain is decreased lp1 01:01 Drug: Zofran 4 mg Route: PO; lp1 01:04 Follow up: Response: Medication administered at discharge. lp1 Intake: 04/24 23:45 IV: 1000ml; Total: 1000ml. lp1 Outcome: 04/25 00:34 Discharge ordered by . kb 01:03 Discharged to home with significant other. lp1 01:03 Condition: good 01:03 Discharge instructions given to patient, significant other, Instructed on discharge instructions, follow up and referral plans. medication usage, Demonstrated understanding of instructions, follow-up care, medications, Prescriptions given X 2. 01:07 Patient left the ED. lp1 Signatures: Dispatcher [employer] EDJacqui Das, FIDELIA RODRIGUEZP-Carolann Mayorga RN RN aa1 Jillian Ambriz, RN RN lp1 Maggi Teague cl3
--- NOTE | 2019-04-25 00:36 | EDPHYS ---
Physician Documentation [facility] Name: Tosin Bain Age: 19 yrs Sex: Male : 2000 Arrival Date: 04/24/2019 Time: 22:09 Bed 7 Private MD: ED Physician Sandor Hartley HPI: 04/24 23:15 This 19 yrs old Black Male presents to ER via Ambulatory with complaints of Vomiting. kb 23:15 The patient presents to the emergency department with nausea, vomiting, abdominal pain. kb Onset: The symptoms/episode began/occurred today. Possible causes: unknown. The symptoms are aggravated by nothing. The symptoms are alleviated by nothing. Associated signs and symptoms: Pertinent positives: abdominal pain, nausea, vomiting. Severity of symptoms: At their worst the symptoms were moderate in the emergency department the symptoms are unchanged. The patient has not experienced similar symptoms in the past. The patient has not recently seen a physician. Pt reports n/v, abd pain, chills, headache and a seizure aura today. Denies actually having a seizure. . Historical: - Allergies: 22:35 No Known Allergies; aa1 - Home Meds: 22:35 Tegretol Oral [Active]; aa1 - PMHx: 22:35 Seizures; aa1 - PSHx: 22:35 None; aa1 - Immunization history:: Flu vaccine is not up to date. - Social history:: Smoking status: Patient uses tobacco products, denies chronic smoking, but will smoke occasionally. - Ebola Screening: : Patient denies exposure to infectious person Patient denies travel to an Ebola-affected area in the 21 days before illness onset. ROS: 23:14 ENT: Negative for injury, pain, and discharge, Neck: Negative for injury, pain, and kb swelling, Cardiovascular: Negative for chest pain, palpitations, and edema, Respiratory: Negative for shortness of breath, cough, wheezing, and pleuritic chest pain, Back: Negative for injury and pain, MS/Extremity: Negative for injury and deformity, Skin: Negative for injury, rash, and discoloration. 23:14 Constitutional: Positive for chills, malaise. 23:14 Abdomen/GI: Positive for abdominal pain, nausea, vomiting. 23:14 Neuro: Positive for headache. Exam: 23:14 Constitutional: This is a well developed, well nourished patient who is awake, alert, kb and in no acute distress. Head/Face: Normocephalic, atraumatic. ENT: Nares patent. No nasal discharge, no septal abnormalities noted. Tympanic membranes are normal and external auditory canals are clear. Oropharynx with no redness, swelling, or masses, exudates, or evidence of obstruction, uvula midline. Mucous membranes moist. Neck: Trachea midline, no thyromegaly or masses palpated, and no cervical lymphadenopathy. Supple, full range of motion without nuchal rigidity, or vertebral point tenderness. No Meningismus. Chest/axilla: Normal chest wall appearance and motion. Nontender with no deformity. No lesions are appreciated. Cardiovascular: Regular rate and rhythm with a normal S1 and S2. No gallops, murmurs, or rubs. Normal PMI, no JVD. No pulse deficits. Respiratory: Lungs have equal breath sounds bilaterally, clear to auscultation and percussion. No rales, rhonchi or wheezes noted. No increased work of breathing, no retractions or nasal flaring. Back: No spinal tenderness. No costovertebral tenderness. Full range of motion. Skin: Warm, dry with normal turgor. Normal color with no rashes, no lesions, and no evidence of cellulitis. MS/ Extremity: Pulses equal, no cyanosis. Neurovascular intact. Full, normal range of motion. Neuro: Awake and alert, GCS 15, oriented to person, place, time, and situation. Cranial nerves II-XII grossly intact. Motor strength 5/5 in all extremities. Sensory grossly intact. Cerebellar exam normal. Normal gait. 23:14 Abdomen/GI: Inspection: abdomen appears normal, Bowel sounds: normal, in all quadrants, Palpation: soft, in all quadrants, moderate abdominal tenderness, in all quadrants. Vital Signs: 22:35 BP 164 / 87; Pulse 95; Resp 18; Temp 98.3; Pulse Ox 96% on R/A; Weight 77.11 kg; Height aa1 6 ft. 2 in. (187.96 cm); Pain 10/10; 22:41 BP 132 / 80; Pulse 100; Resp 16; Pulse Ox 100% on R/A; Pain 10/10; lp1 23:39 BP 141 / 90; Pulse 97; Resp 18; Pulse Ox 100% on R/A; Pain 10/10; lp1 04/25 00:45 BP 126 / 84; Pulse 86; Resp 16; Pulse Ox 98% on R/A; lp1 04/24 22:35 Body Mass Index 21.83 (77.11 kg, 187.96 cm) aa1 MDM: 04/24 22:18 Patient medically screened. kb 23:13 Data reviewed: vital signs, nurses notes. Data interpreted: Pulse oximetry: on room air kb is 100 %. Interpretation: normal. 04/25 00:33 Counseling: I had a detailed discussion with the patient and/or guardian regarding: the kb historical points, exam findings, and any diagnostic results supporting the discharge/admit diagnosis, lab results, radiology results, the need for outpatient follow up, a family practitioner, to return to the emergency department if symptoms worsen or persist or if there are any questions or concerns that arise at home. 04/24 22:22 Order name: Basic Metabolic Panel; Complete Time: 23:12 kb 04/24 22:22 Order name: CBC with Diff; Complete Time: 22:57 kb 04/24 22:22 Order name: Hepatic Function; Complete Time: 23:12 kb 04/24 22:22 Order name: Lipase; Complete Time: 23:12 kb 04/24 22:23 Order name: CT Abd/Pelvis - IV Contrast Only 04/24 22:22 Order name: IV Saline Lock; Complete Time: 22:37 kb 04/24 22:22 Order name: Labs collected and sent; Complete Time: 22:37 kb Administered Medications: 04/24 22:41 Drug: NS 0.9% 1000 ml Route: IV; Rate: 1000 ml; Site: right forearm; lp1 23:45 Follow up: IV Status: Completed infusion; IV Intake: 1000ml lp1 22:41 Drug: Zofran 4 mg Route: IVP; Site: right forearm; lp1 23:38 Follow up: Response: No adverse reaction lp1 22:41 Drug: morphine 2 mg {Note: RASS 1.} Route: IVP; Site: right forearm; lp1 23:37 Follow up: Response: No change in condition lp1 23:38 Drug: morphine 2 mg {Note: RASS 1.} Route: IVP; Site: right forearm; lp1 04/25 01:01 Follow up: Response: No adverse reaction; Pain is decreased lp1 01:01 Drug: Zofran 4 mg Route: PO; lp1 01:04 Follow up: Response: Medication administered at discharge. lp1 Disposition: 06:53 Co-signature as Attending Physician, Sandor Hartley MD I agree with the assessment and tw4 plan of care. Disposition: 04/25/19 00:34 Discharged to Home. Impression: Generalized abdominal pain, Nausea and vomiting. - Condition is Stable. - Discharge Instructions: Nausea and Vomiting, Adult, [id number], Abdominal Pain, Adult, [id number]. - Prescriptions for Zofran 4 mg Oral Tablet - take 1 tablet by ORAL route every 6 hours As needed; 20 tablet. Bentyl 20 mg Oral Tablet - take 1 tablet by ORAL route every 6 hours As needed; 20 tablet. - Medication Reconciliation Form, Thank You Letter, Antibiotic Education, Prescription Opioid Use, Work release form form. - Follow up: Emergency Department; When: As needed; Reason: Worsening of condition. Follow up: Private Physician; When: 2 - 3 days; Reason: Recheck today's complaints, Continuance of care, Re-evaluation by your physician. Signatures: Dispatcher [employer] EDME Jacqui Pena, NP-C NP-Ckb Carolann Welch RN RN aa1 Jillian Ambriz RN RN lp1 Sandor Hartley MD MD tw4 Corrections: (The following items were deleted from the chart) 01:07 00:34 04/25/2019 00:34 Discharged to Home. Impression: Generalized abdominal pain; lp1 Nausea and vomiting. Condition is Stable. Forms are Medication Reconciliation Form, Thank You Letter, Antibiotic Education, Prescription Opioid Use. Follow up: Emergency Department; When: As needed; Reason: Worsening of condition. Follow up: Private Physician; When: 2 - 3 days; Reason: Recheck today's complaints, Continuance of care, Re-evaluation by your physician. kb
[2019-04-25] MEDS ORDERED: ONDANSETRON 4 MG (ODT) TAB ONE (00:58)
[2019-04-25 01:16] VITALS: TEMP 98.3
[2019-04-25 01:21] VITALS: BP 126/84; O2SAT 98
--- NOTE | 2019-04-25 11:45 | RAD REPORT ---
EXAM DESCRIPTION: CT - Abdomen Pelvis W Contrast - 04/25/2019 2:01 am CLINICAL HISTORY: The patient is 19 years old and is Male; ABD PAIN TECHNIQUE: Axial computed tomography images of the abdomen and pelvis with intravenous contrast. S agittal and coronal reformatted images were created and reviewed. This CT exam was performed using one or more of the following dose reduction techniques: automated exposure control, adjustment of t he mA and/or kV according to patient size, and/or use of iterative reconstruction technique. COMPARISON: No relevant prior studies available. FINDINGS: LUNG BASES: Unremarkable. No mass. No consolidation. ABDOMEN: LIVER: Unremarkable. No mass. GALLBLADDER AND BILE DUCTS: No calcified stones. No ductal dilation. PANCREAS: No ductal dilation. No mass. SPLEEN: Unremarkable. ADRENALS: Unremarkable. No mass. KIDNEYS AND URETERS: Unremarkable. The kidneys enhance symmetrically. No obstructing renal or ur eteral calculus is seen. No hydronephrosis or hydroureter. No perinephric fluid or stranding. STOMACH AND BOWEL: The stomach is minimally fluid filled. The proximal small bowel is decompress ed. The distal small bowel is fluid-filled. Stool is noted within the colon. There is no bowel obstru ction. PELVIS: APPENDIX: The appendix is normal in caliber without surrounding inflammation. BLADDER: Unremarkable. No mass. REPRODUCTIVE: Unremarkable as visualized. ABDOMEN and PELVIS: INTRAPERITONEAL SPACE: Unremarkable. No free air. No significant fluid collection. BONES/JOINTS: No acute fracture. SOFT TISSUES: The soft tissues are normal. VASCULATURE: Unremarkable. No abdominal aortic aneurysm. LYMPH NODES: Unremarkable. No enlarged lymph nodes. IMPRESSION: No acute findings on this contrasted CT of the abdomen and pelvis to explain the patient 's symptoms. 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 The interpreting radiologist is f lesliely responsible for the content of the report.
== END 2019-04-25 01:07 | disposition home or self-care (01) ==
LOC: ER 22:06
DX: R11.2 Nausea with vomiting, unspecified (principal); R10.84 Generalized abdominal pain; R56.9 Unspecified convulsions; Z72.0 Tobacco use
CPT/HCPCS: 96361; 85025; 80048; 36415; 80076; 83690; 74177; 96375; 96374; 99284; Q9967; J2270 ×2; J7030; J2405